=== PATIENT | female | born 1970 | race Caucasian/White ===

== ENCOUNTER → 2018-01-16 | Outpatient (CLI) | payer MEDICARE, OTHER ==
--- NOTE | 2018-01-17 09:31 | MM ---
Reason for exam: screening (asymptomatic). Last mammogram was performed 8 years and 7 months ago. Physical Findings: A clinical breast exam by your physician is recommended on an annual basis and results should be correlated with mammographic findings. MG 3D Screening Mammo W/Cad Bilateral CC and MLO view(s) were taken. Prior study comparison: June 21, 2009, mammogram, performed at [facility]. There are scattered fibroglandular densities. No significant changes when compared with prior studies. ASSESSMENT: Benign, BI-RAD 2 RECOMMENDATION: Routine screening mammogram of both breasts in 1 year.
== END | disposition home or self-care (01) ==
LOC: RADMAMWWP 11:22
PROVIDERS: ATTEND Family Medicine
DX: Z12.31 Encounter for screening mammogram for malignant neoplasm of breast (principal)
CPT/HCPCS: 77063; 77067

== ENCOUNTER → 2020-03-14 | Outpatient (CLI) | payer MEDICARE, OTHER ==
--- NOTE | 2020-03-14 18:34 | BD ---
EXAMINATION TYPE: Axial Bone Density DATE OF EXAM: 03/14/2020 COMPARISON: NONE CLINICAL HISTORY: 49 YR OLD FEMALE.....ICD-10 CODE: Z78.0 ASYMPTOMATIC MENOPAUSAL STATE Height: 64 Weight: 195 FRAX RISK QUESTIONS: Glucocorticoids (More than 3mos): YES (Ex: prednisone, prednisolone, methylprednisolone, dexamethasone, and hydrocortisone). Secondary Osteoporosis: YES 1. Type 1 Diabetes: YES 3. 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 Bone mineral density as measured about the Lumbar spine is: ----- L1-L4(G/cm2): 1.527 T Score Values are as follows: ----- L1: 1.9 ----- L2: 2.8 ----- L3: 2.4 ----- L4: 4.3 ----- L1-L4: 2.9 Bone mineral density BASELINE STUDY Bone mineral density about the R hip (g/cm2): 1.058 Bone mineral density about the L hip (g/cm2): 1.095 T Score values are as follows: -----R Neck: -0.5 -----L Neck: 0.2 -----R Total: 0.4 -----L Total: 0.7 Bone mineral density FIRST BONE DENSITY......BASELINE STUDY FRAX%s: THERE IS A 6.8% CHANCE FOR A MAJOR OSTEOPOROTIC FX AND A 0.4% FOR HIP.....PROBABILITY FOR F X IN 10 YRS TIME IMPRESSION: Normal (Values between +1 and -1 indicate normal bone mass). Consider repeating this study in 5 year s or sooner if there is some new clinical indication. NOTE: T-SCORE=SD OF THE YOUNG ADULT MEAN.
== END | disposition home or self-care (01) ==
LOC: RADBDWWP 10:29
PROVIDERS: ATTEND Family Medicine
DX: Z78.0 Asymptomatic menopausal state (principal)
CPT/HCPCS: 77080

== ENCOUNTER → 2020-05-16 | Outpatient (CLI) | payer MEDICARE, OTHER ==
--- NOTE | 2020-05-19 08:34 | MM ---
Reason for exam: screening (asymptomatic). Last mammogram was performed 2 years and 4 months ago. History: Patient is postmenopausal. Took hormonal contraceptives for 2 years. Physical Findings: A clinical breast exam by your physician is recommended on an annual basis and results should be correlated with mammographic findings. MG Screening Mammo w CAD Bilateral CC and MLO view(s) were taken. Prior study comparison: January 16, 2018, bilateral MG 3d screening mammo w/cad. June 21, 2009, mammogram, performed at [facility]. There are scattered fibroglandular densities. No significant changes when compared with prior studies. ASSESSMENT: Negative, BI-RAD 1 RECOMMENDATION: Routine screening mammogram of both breasts in 1 year.
== END | disposition home or self-care (01) ==
LOC: RADMAMWWP 08:31
PROVIDERS: ATTEND Family Medicine
DX: Z12.31 Encounter for screening mammogram for malignant neoplasm of breast (principal)
CPT/HCPCS: 77067

== ENCOUNTER → 2020-07-28 | Outpatient (CLI) | payer MEDICARE ==
--- NOTE | 2020-07-28 11:51 | XR ---
Left foot HISTORY: Trauma and pain for 3 weeks 3 views the left foot There is a proximal diaphyseal left fifth metatarsal fracture with minimal displacement. No evident c allus formation to suggest fracture healing. No evident dislocation. There is a small plantar calcane al spur. Mild spurring present at the intertarsal joints. IMPRESSION: Proximal fifth metatarsal fracture
== END | disposition home or self-care (01) ==
LOC: RADXRMAIN 09:24
PROVIDERS: ATTEND Family Medicine
DX: S92.352A Displaced fracture of fifth metatarsal bone, left foot, initial encounter for closed fracture (principal)

== ENCOUNTER 2020-09-29 11:44 | Observation (INO) | payer MEDICARE ==
[2020-09-29 13:52] LABS: Appearance,Urine Clear (Clear); Bacteria,Urine Occasional /hpf; Bilirubin,Urine Negative (Negative); Blood,Urine Negative (Negative); Color,Urine Yellow; Glucose,Urine (UA) 4+ (Negative); Leukocyte Esterase,Urine Trace (Negative); Mucus,Urine Rare /hpf; Nitrite,Urine Negative (Negative); Protein,Urine Negative (Negative); RBC,Urine 1 /hpf (0-5); Specific Gravity,Urine 1.028 (1.001-1.035); Squamous Epithelial Cell,Urine 4 /hpf (0-4); Urobilinogen,Urine <2.0 mg/dL (<2.0); WBC,Urine 9 /hpf (0-5)
[2020-09-29 13:55] LABS: Ketones,Urine 2+ (Negative)
[2020-09-29] MEDS ORDERED: ONDANSETRON 4 MG/2 ML VIAL IVP STA (14:19)
[2020-09-29] MEDS ORDERED: SODIUM CHLORIDE 0.9% 1,000 ML IV STA (14:19)
[2020-09-29] MEDS ORDERED: FAMOTIDINE 20 MG/2 ML VIAL IV STA (14:24)
--- NOTE | 2020-09-29 14:28 | ED ---
Abdominal Pain HPI - General Chief Complaint: Abdominal Pain Stated Complaint: Abd Pain x 1 week Time Seen by Provider: 09/29/20 13:55 Source: patient, RN notes reviewed Mode of arrival: ambulatory Limitations: no limitations - History of Present Illness Initial Comments: 50-year-old white female, alert and oriented 4, presents to the emergency room with complaints of epigastric and right upper quadrant pain for the past week. Patient states that she noticed that the pain is worse immediately after she eats. Patient denies any vomiting OR He describes the pain as crampy and sharp after eating. Patient denies any fevers, vomiting, or diarrhea. Patient has history of insulin-dependent diabetes, hypertension. -: week(s) (1) Location: RUQ, epigastric Migration to: no migration Severity: moderate Severity scale (1-10): 4 Quality: cramping, sharp Consistency: intermittent Improves With: other (Not eating) Worsens With: eating Associated Symptoms: denies other symptoms - Related Data Allergies Allergy/AdvReac Type Severity Reaction Status Date / Time Penicillins Allergy Nausea & Verified 09/29/20 12:57 Vomiting Review of Systems ROS Statement: Those systems with pertinent positive or pertinent negative responses have been documented in the HPI. ROS Other: All systems not noted in ROS Statement are negative. Past Medical History Past Medical History: Diabetes Mellitus, Hypertension Additional Past Surgical History / Comment(s): orthopedic Past Psychological History: No Psychological Hx Reported Smoking Status: Former smoker Past Alcohol Use History: None Reported Past Drug Use History: None Reported General Exam Limitations: no limitations Course Vital Signs 09/29/20 09/29/20 09/29/20 12:53 14:54 17:00 Temperature 97.9 F Pulse Rate 93 78 88 Respiratory 20 18 18 Rate Blood Pressure 102/70 109/74 106/80 O2 Sat by Pulse 100 100 100 Oximetry 09/29/20 18:00 Temperature 98.4 F Pulse Rate 80 Respiratory 18 Rate Blood Pressure 110/78 O2 Sat by Pulse 98 Oximetry Medical Decision Making - Medical Decision Making White blood cell count 17.2, neutrophils 10.2, lymphocytes 5.6, BUN 25 creatinine 1.08 is elevated from 0.72 in 2016, possibly [place]. Lactic acid is negative at 1.9. Urine shows 9 WBCs with positive leukocytes. Dr. borrero has seen patient in the ER. , KUB xray shows no abnormal calcifications no obstruction or pneumoperitoneum. Abdominal ultrasound shows no gallstones, fatty liver is noted. - Lab Data Result diagrams: 09/29/20 14:23 09/29/20 14:23 Lab Results 09/29/20 09/29/20 09/29/20 Range/Units 13:41 14:23 14:23 WBC 17.2 H (3.8-10.6) k/uL RBC 5.25 (3.80-5.40) m/uL Hgb 15.5 (11.4-16.0) gm/dL Hct 46.2 H (34.0-46.0) % MCV 87.9 (80.0-100.0) fL MCH 29.5 (25.0-35.0) pg MCHC 33.5 (31.0-37.0) g/dL RDW 12.5 (11.5-15.5) % Plt Count 363 (150-450) k/uL MPV 9.7 Neutrophils % 59 % Lymphocytes % 34 % Monocytes % 4 % Eosinophils % 0 % Basophils % 1 % Neutrophils # 10.2 H (1.3-7.7) k/uL Lymphocytes # 5.8 H (1.0-4.8) k/uL Monocytes # 0.7 (0-1.0) k/uL Eosinophils # 0.1 (0-0.7) k/uL Basophils # 0.1 (0-0.2) k/uL PT 10.1 (9.0-12.0) sec INR 0.9 (<1.2) APTT 22.0 (22.0-30.0) sec Sodium (137-145) mmol/L Potassium (3.5-5.1) mmol/L Chloride (98-107) mmol/L Carbon Dioxide (22-30) mmol/L Anion Gap mmol/L BUN (7-17) mg/dL Creatinine (0.52-1.04) mg/dL Est GFR (CKD-EPI)AfAm (>60 ml/min/1.73 sqM) Est GFR (CKD-EPI)NonAf (>60 ml/min/1.73 sqM) Glucose (74-99) mg/dL Plasma Lactic Acid Vinnie (0.7-2.0) mmol/L Calcium (8.4-10.2) mg/dL Total Bilirubin (0.2-1.3) mg/dL AST (14-36) U/L ALT (4-34) U/L Alkaline Phosphatase (38-126) U/L Total Protein (6.3-8.2) g/dL Albumin (3.5-5.0) g/dL Amylase (30-110) U/L Lipase (23-300) U/L Urine Color Yellow Urine Appearance Clear (Clear) Urine pH 5.0 (5.0-8.0) Ur Specific [place] 1.028 (1.001-1.035) Urine Protein Negative (Negative) Urine Glucose (UA) 4+ H (Negative) Urine Ketones 2+ H (Negative) Urine Blood Negative (Negative) Urine Nitrite Negative (Negative) Urine Bilirubin Negative (Negative) Urine Urobilinogen <2.0 (<2.0) mg/dL Ur Leukocyte Esterase Trace H (Negative) Urine RBC 1 (0-5) /hpf Urine WBC 9 H (0-5) /hpf Ur Squamous Epith Cells 4 (0-4) /hpf Urine Bacteria Occasional H (None) /hpf Urine Mucus Rare H (None) /hpf 09/29/20 09/29/20 Range/Units 14:23 14:23 WBC (3.8-10.6) k/uL RBC (3.80-5.40) m/uL Hgb (11.4-16.0) gm/dL Hct (34.0-46.0) % MCV (80.0-100.0) fL MCH (25.0-35.0) pg MCHC (31.0-37.0) g/dL RDW (11.5-15.5) % Plt Count (150-450) k/uL MPV Neutrophils % % Lymphocytes % % Monocytes % % Eosinophils % % Basophils % % Neutrophils # (1.3-7.7) k/uL Lymphocytes # (1.0-4.8) k/uL Monocytes # (0-1.0) k/uL Eosinophils # (0-0.7) k/uL Basophils # (0-0.2) k/uL PT (9.0-12.0) sec INR (<1.2) APTT (22.0-30.0) sec Sodium 131 L (137-145) mmol/L Potassium 4.4 (3.5-5.1) mmol/L Chloride 89 L (98-107) mmol/L Carbon Dioxide 25 (22-30) mmol/L Anion Gap 17 mmol/L BUN 25 H (7-17) mg/dL Creatinine 1.08 H (0.52-1.04) mg/dL Est GFR (CKD-EPI)AfAm 69 (>60 ml/min/1.73 sqM) Est GFR (CKD-EPI)NonAf 60 (>60 ml/min/1.73 sqM) Glucose 127 H (74-99) mg/dL Plasma Lactic Acid Vinnie 1.9 (0.7-2.0) mmol/L Calcium 9.7 (8.4-10.2) mg/dL Total Bilirubin 0.7 (0.2-1.3) mg/dL AST 31 (14-36) U/L ALT 57 H (4-34) U/L Alkaline Phosphatase 96 (38-126) U/L Total Protein 7.1 (6.3-8.2) g/dL Albumin 4.4 (3.5-5.0) g/dL Amylase 50 (30-110) U/L Lipase 157 (23-300) U/L Urine Color Urine Appearance (Clear) Urine pH (5.0-8.0) Ur Specific [place] (1.001-1.035) Urine Protein (Negative) Urine Glucose (UA) (Negative) Urine Ketones (Negative) Urine Blood (Negative) Urine Nitrite (Negative) Urine Bilirubin (Negative) Urine Urobilinogen (<2.0) mg/dL Ur Leukocyte Esterase (Negative) Urine RBC (0-5) /hpf Urine WBC (0-5) /hpf Ur Squamous Epith Cells (0-4) /hpf Urine Bacteria (None) /hpf Urine Mucus (None) /hpf Disposition Clinical Impression: Abdominal pain Disposition: ADMITTED IP TO THIS HOSP Condition: Fair Instructions (If sedation given, give patient instructions): Abdominal Pain (ED) Is patient prescribed a controlled substance at d/c from ED?: No Referrals: Harpal Queen DO [Primary Care Provider] - 1-2 days Decision Date: 09/29/20 Decision Time: 18:47
[2020-09-29 14:41] LABS: Basophils # (A) 0.1 k/uL (0-0.2); Basophils % (A) 1 %; Eosinophils # (A) 0.1 k/uL (0-0.7); Eosinophils % (A) 0 %; HCT 46.2 % (34.0-46.0); HGB 15.5 gm/dL (11.4-16.0); Lymphocytes # (A) 5.8 k/uL (1.0-4.8); Lymphocytes % (A) 34 %; MCH 29.5 pg (25.0-35.0); MCHC 33.5 g/dL (31.0-37.0); MCV 87.9 fL (80.0-100.0); Mean Platelet Volume 9.7; Monocytes # (A) 0.7 k/uL (0-1.0); Monocytes % (A) 4 %; Neutrophils # (A) 10.2 k/uL (1.3-7.7); Neutrophils % (A) 59 %; Platelet Count 363 k/uL (150-450); RBC 5.25 m/uL (3.80-5.40); RDW 12.5 % (11.5-15.5); WBC 17.2 k/uL (3.8-10.6)
[2020-09-29 14:54] LABS: Albumin 4.4 g/dL (3.5-5.0); Calcium 9.7 mg/dL (8.4-10.2); Potassium 4.4 mmol/L (3.5-5.1); Total Bilirubin 0.7 mg/dL (0.2-1.3); Total Protein 7.1 g/dL (6.3-8.2)
[2020-09-29 14:58] LABS: INR 0.9 (<1.2); Prothrombin Time 10.1 sec (9.0-12.0)
--- NOTE | 2020-09-29 16:36 | XR ---
EXAMINATION TYPE: XR KUB DATE OF EXAM: 09/29/2020 2:30 PM CLINICAL HISTORY: Abdominal pain. TECHNIQUE: Upright images of the abdomen and pelvis were obtained COMPARISON: None. FINDINGS: Left-sided nipple piercing. Nonspecific bowel gas pattern. There is no visceromegaly, pneum operitoneum, or abnormal calcification appreciated. The lung bases are clear. The osseous structures are intact. IMPRESSION: Nonspecific bowel gas pattern.
--- NOTE | 2020-09-29 17:19 | US ---
EXAMINATION TYPE: US abdomen complete DATE OF EXAM: 09/29/2020 COMPARISON: NONE CLINICAL HISTORY: abdominal pain. Epigastric pain, nausea/vomiting EXAM MEASUREMENTS: Liver Length: 17.8 cm Gallbladder Wall: 0.3 cm CBD: 0.4 cm Spleen: 11.7 cm Right Kidney: 10.8 x 4.3 x 4.0 cm Left Kidney: 10.7 x 5.7 x 5.3 cm technical limitations due to overlying bowel content Pancreas: Obscured by bowel gas. Liver: Coarsened echotexture and increased echogenicity. Poor posterior beam penetration due to pres umed fatty liver limits evaluation of the posterior liver. Gallbladder: Normal. No cholelithiasis. Candle Wrapping Machine Operator reports negative sonographic [place] sign. CBD: Normal. Spleen: Normal. Right Kidney: No hydronephrosis. Left Kidney: No hydronephrosis. Upper IVC: Normal. Abd Aorta: Midportion obscured by overlying bowel gas. Proximal and distal portions normal in calibe r. IMPRESSION: 1. Fatty liver. 2. Otherwise no acute visualized process of the abdomen.
--- NOTE | 2020-09-29 18:23 | CT ---
EXAMINATION TYPE: CT abdomen pelvis wo con DATE OF EXAM: 09/29/2020 COMPARISON: Same day abdominal ultrasound HISTORY: abdominal pain CT DLP: 645.4 mGycm Automated exposure control for dose reduction was used. TECHNIQUE: Helical acquisition of images was performed from the lung bases through the pelvis. CONTRAST: Performed without Oral Contrast and without intravenous contrast. Lack of contrast limits evaluation of the dominant pelvic viscera and vasculature. FINDINGS: LUNG BASES: Normal. LIVER: Fatty liver. BILIARY SYSTEM: No intrahepatic or extrahepatic biliary ductal dilatation. PANCREAS: No peripancreatic stranding or fluid collection. SPLEEN: Not enlarged. ADRENALS: There is nodular thickening of the left adrenal gland which is indeterminate. Right adrenal gland normal. KIDNEYS: No hydronephrosis or nephrolithiasis . BOWEL: No evidence of bowel obstruction. There is perigastric inflammatory stranding about the dista l antrum and pyloric region. The stomach is not well-distended, and limited in evaluation with lack o f contrast. No evidence of gastric perforation. PERITONEUM: No pneumoperitoneum. No free fluid. LYMPH NODES: Prominent perigastric mesenteric lymph nodes in the region of the pylorus, largest trina uring up to 7 mm. PELVIS: Normal uterus and adnexa. Urinary bladder nondistended. VASCULATURE: No abdominal aortic aneurysm. MUSCULOSKELETAL: Degenerative changes of the spine. IMPRESSION: 1. There is perigastric inflammatory stranding and reactive lymphadenopathy about the distal antrum a nd pyloric region. The stomach is limited in evaluation due to lack of intravenous or oral contrast a nd nondistention. There is no gastric perforation. Differential includes gastritis, ulcerative diseas e, and neoplasm. Recommend correlation with EGD. 2. Non determinate nodular thickening of the left adrenal gland. CT abdomen or MRI abdomen with adren al mass protocol is recommended for further characterization. 3. Fatty liver.
[2020-09-29] MEDS ORDERED: ACETAMINOPHEN TAB 325 MG TAB PO PRN (18:42)
[2020-09-29] MEDS ORDERED: NALOXONE 0.4 MG/ML 1 ML VIAL IV PRN (18:42)
[2020-09-29] MEDS ORDERED: SODIUM CHLORIDE 0.9% 1,000 ML IV SCH (18:45)
[2020-09-29] MEDS ORDERED: hydrALAZINE HCL 20 MG/ML 1 ML VIAL IVP PRN (21:38)
[2020-09-29] MEDS ORDERED: MORPHINE SULFATE 4 MG/ML SYRINGE IVP PRN (21:38)
[2020-09-29 22:31] LABS: Glucose,Whole Blood 61 mg/dL (75-99)
[2020-09-29] MEDS ORDERED: DEXTROSE 50% SYRINGE 50 ML IVP STA (22:39)
[2020-09-29] MEDS ORDERED: DEXTROSE 50% SYRINGE 50 ML IVP ONE (22:44)
--- NOTE | 2020-09-29 23:15 | P.HPIM ---
History of Present Illness This is a pleasant 50 years old female with past medical history of hypertension, diabetes mellitus. She is a patient of Dr. Queen she also follow-up with Dr. Miller for pain management and Dr. Harrell for rheumatoid arthritis She presents because of upper abdominal pain and tenderness of one week ago associated with recurrent vomiting which is stopped now. She has normal bowel movement. Her abdominal pain is rated about 3-4/10 in severity, felt like stabbing increased with food but unrelated to drinks. She denies smoking, alcohol or illicit drugs She denies chest pain or dyspnea. No headache or weakness or numbness. Patient is hemodynamically stable and afebrile. Left showing leukocytosis of 17.2 K, rest of CBC, BMP is unremarkable Slightly low at 131, creatinine is slightly up at 1.08. Liver enzymes not elevated. Glucose 61 and patient was placed on D5 normal saline. Urine analysis showing Samper with no evidence of infection. Patient has glucosuria Coronavirus not detected CT of the abdomen and pelvis showing left adrenal nodular thickening and fat stranding around the pylorus and antrum of the stomach, rule out ulcer, neoplasm or gastritis per radiologist Review of Systems CONSTITUTIONAL: No fever, no malaise, no fatigue. HEENT: No recent visual problems or hearing problems. Denied any sore throat. CARDIOVASCULAR: No orthopnea, PND, no palpitations, no syncope. PULMONARY: No shortness of breath, no cough, no hemoptysis. GASTROINTESTINAL: No diarrhea, no nausea,. Normoactive bowel sounds. NEUROLOGICAL: No headaches, no weakness, no numbness. HEMATOLOGICAL: Denies any bleeding or petechiae. GENITOURINARY: Denies any burning micturition, frequency, or urgency. MUSCULOSKELETAL/RHEUMATOLOGICAL: Denies any joint pain, swelling, or any muscle pain. ENDOCRINE: Denies any polyuria or polydipsia. Past Medical History Past Medical History: Diabetes Mellitus, Hypertension Additional Past Surgical History / Comment(s): orthopedic Past Psychological History: No Psychological Hx Reported Smoking Status: Former smoker Past Alcohol Use History: None Reported Past Drug Use History: None Reported Medications and Allergies Home Medications Medication Instructions Recorded Confirmed Type ARIPiprazole [Abilify] 20 mg PO DAILY 09/29/20 09/29/20 History Budesonide/Formoterol Fumarate 2 puff INHALATION RT-BID PRN 09/29/20 09/29/20 History [Symbicort 160-4.5 Mcg Inhaler] Bydureon Bcise 2mg Autoinject 2 mg INJ MAX 09/29/20 09/29/20 History DULoxetine HCL [Cymbalta] 120 mg PO HS 09/29/20 09/29/20 History Dapagliflozin Propanediol [Farxiga] 10 mg PO DAILY 09/29/20 09/29/20 History Etanercept [Enbrel Sureclick] 5 mg INJ MAX 09/29/20 09/29/20 History Fluticasone Nasal [place] [Flonase 1 spray EA NOSTRIL DAILY PRN 09/29/20 09/29/20 History Nasal [place]] HYDROcodone/APAP 10-325MG [[place] 1 tab PO DAILY 09/29/20 09/29/20 History 10-325] Hydroxychloroquine Sulfate 200 mg PO BID 09/29/20 09/29/20 History [Plaquenil] Insulin Detemir [Levemir Flextouch] 50 unit SQ HS 09/29/20 09/29/20 History Meloxicam [Mobic] 15 mg PO DAILY PRN 09/29/20 09/29/20 History Metoprolol Succinate [Toprol XL] 100 mg PO DAILY 09/29/20 09/29/20 History Morphine Sulfate ER [Ms Contin] 15 mg PO BID 09/29/20 09/29/20 History Simvastatin [Zocor] 20 mg PO HS 09/29/20 09/29/20 History metFORMIN HCL [Glucophage] 500 mg PO BID 09/29/20 09/29/20 History Allergies Allergy/AdvReac Type Severity Reaction Status Date / Time Penicillins Allergy Nausea & Verified 09/29/20 20:48 Vomiting Physical Exam Vitals: Vital Signs Temp Pulse Resp BP Pulse Ox 09/29/20 21:00 98.1 F 71 18 102/70 98 09/29/20 19:30 98.1 F 65 18 104/71 97 09/29/20 18:00 98.4 F 80 18 110/78 98 09/29/20 17:00 88 18 106/80 100 09/29/20 14:54 78 18 109/74 100 09/29/20 12:53 97.9 F 93 20 102/70 100 Intake and Output 09/29/20 09/29/20 09/29/20 06:59 14:59 22:59 Other: Weight 88.451 kg GENERAL: The patient is alert and oriented x3, not in any acute distress. Well developed, well nourished. HEENT: Pupils are round and equally reacting to light. EOMI. No scleral icterus. No conjunctival pallor. Normocephalic, atraumatic. No pharyngeal erythema. No thyromegaly. CARDIOVASCULAR: S1 and S2 present. No murmurs, rubs, or gallops. PULMONARY: Chest is clear to auscultation, no wheezing or crackles. -ABDOMEN: Soft, epigastric pain and tenderness, no rebound tenderness, nondist ended, normoactive bowel sounds. No palpable organomegaly. MUSCULOSKELETAL: No joint swelling or deformity. EXTREMITIES: No cyanosis, clubbing, or pedal edema. NEUROLOGICAL: Gross neurological examination did not reveal any focal deficits. SKIN: No rashes. no petechiae. Results CBC & Chem 7: 09/29/20 14:23 09/29/20 14:23 Labs: Abnormal Lab Results - Last 24 Hours (Table) 09/29/20 09/29/20 09/29/20 Range/Units 13:41 14:23 14:23 WBC 17.2 H (3.8-10.6) k/uL Hct 46.2 H (34.0-46.0) % Neutrophils # 10.2 H (1.3-7.7) k/uL Lymphocytes # 5.8 H (1.0-4.8) k/uL Sodium 131 L (137-145) mmol/L Chloride 89 L (98-107) mmol/L BUN 25 H (7-17) mg/dL Creatinine 1.08 H (0.52-1.04) mg/dL Glucose 127 H (74-99) mg/dL ALT 57 H (4-34) U/L Urine Glucose (UA) 4+ H (Negative) Urine Ketones 2+ H (Negative) Ur Leukocyte Esterase Trace H (Negative) Urine WBC 9 H (0-5) /hpf Urine Bacteria Occasional H (None) /hpf Urine Mucus Rare H (None) /hpf Assessment and Plan Assessment: Acute gastritis with epigastric pain and tenderness. Rule out neoplastic process. Left adrenal nodular thickening Dehydration Hypertension 2 diabetes mellitus Chronic pain syndrome and follow-up with Dr. Miller History of rheumatoid arthritis Plan: This is a pleasant 50 years old female who presents with epigastric abdominal pain and tenderness with vomiting. Patient is dehydrated so continue with IV fluids, continue with Protonix. Pain management. Bowel rest. IV fluids. Consult GI team for possible EGD Labs and medication were reviewed.. Continue same treatment. Continue with symptomatic treatment. Resume home medication. Monitor lytes and vitals. DVT and GI prophylaxis. Further recommendationsas per clinical course of the patient DVT prophylaxis: Subcutaneous heparin GI Prophylaxis: Ppi Prognosis is guarded
[2020-09-29 23:22] LABS: Glucose,Whole Blood 122 mg/dL (75-99)
[2020-09-29] MEDS: DEXTROSE 5%-0.9% NACL 1,000 ML IV SCH (23:25)
[2020-09-30 00:21] LABS: Glucose,Whole Blood 107 mg/dL (75-99)
[2020-09-30 03:27] LABS: Glucose,Whole Blood 141 mg/dL (75-99)
[2020-09-30 07:01] LABS: Glucose,Whole Blood 155 mg/dL (75-99)
[2020-09-30] MEDS: INSULIN ASPART (NovoLOG) 100 UNIT/ML VIAL SQ SCH ×4 (08:15→20:59)
[2020-09-30] MEDS: DEXTROSE 5%-0.9% NACL 1,000 ML IV SCH ×2 (09:48→20:59)
[2020-09-30 11:36] LABS: Glucose,Whole Blood 120 mg/dL (75-99)
[2020-09-30 17:42] LABS: Glucose,Whole Blood 185 mg/dL (75-99)
--- NOTE | 2020-09-30 20:14 | P.PN ---
Subjective This is a pleasant 50 years old female with past medical history of hypertension, diabetes mellitus. She is a patient of Dr. Queen she also follo w-up with Dr. Miller for pain management and Dr. Harrell for rheumatoid arthritis She presents because of upper abdominal pain and tenderness of one week ago associated with recurrent vomiting which is stopped now. She has normal bowel movement. Her abdominal pain is rated about 3-4/10 in severity, felt like stabbing increased with food but unrelated to drinks. She denies smoking, alcohol or illicit drugs She denies chest pain or dyspnea. No headache or weakness or numbness. Patient is hemodynamically stable and afebrile. Left showing leukocytosis of 17.2 K, rest of CBC, BMP is unremarkable Slightly low at 131, creatinine is slightly up at 1.08. Liver enzymes not elevated. Glucose 61 and patient was placed on D5 normal saline. Urine analysis showing Samper with no evidence of infection. Patient has glucosuria Coronavirus not detected CT of the abdomen and pelvis showing left adrenal nodular thickening and fat stranding around the pylorus and antrum of the stomach, rule out ulcer, neoplasm or gastritis per radiologist 09/30/2020 Patient epigastric pain and tenderness has improved today, hemodynamically stable Labs are pending still. Glucose is controlled Discussed case with GI team and planning for EGD in the morning. Patient aware of her gastritis and the need to rule out neoplasm Patient remains on D5 normal saline at 100 mL per hour and Protonix IV twice a day Objective - Vital Signs Vital signs: Vital Signs Temp 97.7 F 09/30/20 07:00 Pulse 64 09/30/20 07:59 Resp 14 09/30/20 07:59 BP 98/67 09/30/20 07:00 Pulse Ox 96 09/30/20 07:00 Intake & Output 09/29/20 09/30/20 09/30/20 18:59 06:59 18:59 Weight 88.451 kg 88.451 kg Other: Voiding Method Toilet Toilet # Voids 1 - Exam GENERAL: The patient is alert and oriented x3, not in any acute distress. Well developed, well nourished. HEENT: Pupils are round and equally reacting to light. EOMI. No scleral icterus. No conjunctival pallor. Normocephalic, atraumatic. No pharyngeal erythema. No thyromegaly. CARDIOVASCULAR: S1 and S2 present. No murmurs, rubs, or gallops. PULMONARY: Chest is clear to auscultation, no wheezing or crackles. ABDOMEN: Soft, nontender, nondistended, normoactive bowel sounds. No palpable organomegaly. MUSCULOSKELETAL: No joint swelling or deformity. EXTREMITIES: No cyanosis, clubbing, or pedal edema. NEUROLOGICAL: Gross neurological examination did not reveal any focal deficits. SKIN: No rashes. no petechiae. - Labs CBC & Chem 7: 09/29/20 14:23 09/29/20 14:23 Labs: Abnormal Lab Results - Last 24 Hours (Table) 09/29/20 09/29/20 09/29/20 Range/Units 13:41 14:23 14:23 WBC 17.2 H (3.8-10.6) k/uL Hct 46.2 H (34.0-46.0) % Neutrophils # 10.2 H (1.3-7.7) k/uL Lymphocytes # 5.8 H (1.0-4.8) k/uL Sodium 131 L (137-145) mmol/L Chloride 89 L (98-107) mmol/L BUN 25 H (7-17) mg/dL Creatinine 1.08 H (0.52-1.04) mg/dL Glucose 127 H (74-99) mg/dL POC Glucose (mg/dL) (75-99) mg/dL ALT 57 H (4-34) U/L Urine Glucose (UA) 4+ H (Negative) Urine Ketones 2+ H (Negative) Ur Leukocyte Esterase Trace H (Negative) Urine WBC 9 H (0-5) /hpf Urine Bacteria Occasional H (None) /hpf Urine Mucus Rare H (None) /hpf 09/29/20 09/29/20 09/30/20 Range/Units 22:30 23:20 00:20 WBC (3.8-10.6) k/uL Hct (34.0-46.0) % Neutrophils # (1.3-7.7) k/uL Lymphocytes # (1.0-4.8) k/uL Sodium (137-145) mmol/L Chloride (98-107) mmol/L BUN (7-17) mg/dL Creatinine (0.52-1.04) mg/dL Glucose (74-99) mg/dL POC Glucose (mg/dL) 61 L 122 H 107 H (75-99) mg/dL ALT (4-34) U/L Urine Glucose (UA) (Negative) Urine Ketones (Negative) Ur Leukocyte Esterase (Negative) Urine WBC (0-5) /hpf Urine Bacteria (None) /hpf Urine Mucus (None) /hpf 09/30/20 09/30/20 09/30/20 Range/Units 03:25 07:00 11:34 WBC (3.8-10.6) k/uL Hct (34.0-46.0) % Neutrophils # (1.3-7.7) k/uL Lymphocytes # (1.0-4.8) k/uL Sodium (137-145) mmol/L Chloride (98-107) mmol/L BUN (7-17) mg/dL Creatinine (0.52-1.04) mg/dL Glucose (74-99) mg/dL POC Glucose (mg/dL) 141 H 155 H 120 H (75-99) mg/dL ALT (4-34) U/L Urine Glucose (UA) (Negative) Urine Ketones (Negative) Ur Leukocyte Esterase (Negative) Urine WBC (0-5) /hpf Urine Bacteria (None) /hpf Urine Mucus (None) /hpf Assessment and Plan Assessment: Acute gastritis with epigastric pain and tenderness. Rule out neoplastic process. Left adrenal nodular thickening Dehydration Hypertension 2 diabetes mellitus Chronic pain syndrome and follow-up with Dr. Miller History of rheumatoid arthritis Plan: This is a pleasant 50 years old female who presents with epigastric abdominal pain and tenderness with vomiting. Patient is dehydrated so continue with IV fluids, continue with Protonix. Pain management. Bowel rest. IV fluids. Continue with GI team recommendation for EGD in the morning Labs and medication were reviewed.. Continue same treatment. Continue with symptomatic treatment. Resume home medication. Monitor lytes and vitals. DVT and GI prophylaxis. Further recommendations as per clinical course of the patient DVT prophylaxis: Subcutaneous heparin GI Prophylaxis: Ppi Prognosis is guarded
[2020-09-30 20:44] LABS: Glucose,Whole Blood 209 mg/dL (75-99)
[2020-09-30] MEDS: PANTOPRAZOLE 40 MG/10 ML VIAL IVP SCH (20:59)
[2020-09-30 21:38] LABS: Basophils % (A) 0.9 %; Eosinophils # (A) 0.09 X 10*3/uL (0.04-0.35); Eosinophils % (A) 0.8 %; HCT 48.9 % (37.2-46.3); HGB 16.5 g/dL (12.0-15.0); Lymphocytes # (A) 3.54 X 10*3/uL (0.90-5.00); Lymphocytes % (A) 32.8 %; MCH 30.4 pg (27.0-32.0); MCHC 33.7 g/dL (32.0-37.0); MCV 90.1 fL (80.0-97.0); Mean Platelet Volume 12.1 fL (9.5-12.2); Monocytes # (A) 0.74 X 10*3/uL (0.20-1.00); Monocytes % (A) 6.9 %; Neutrophils # (A) 6.27 X 10*3/uL (1.80-7.70); Neutrophils % (A) 58.1 %; Platelet Count 259 X 10*3/uL (140-440); RBC 5.43 X 10*6/uL (4.10-5.20); WBC 10.79 X 10*3/uL (4.50-10.00)
[2020-09-30 22:20] LABS: African American GFR (CKD) 86.4 (60.0-200.0); BUN/Creat Ratio 18.89 Ratio (12.00-20.00); Calcium 9.5 mg/dL (8.7-10.3); Non-African American GFR(CKD) 74.6 (60.0-200.0); Potassium 4.4 mmol/L (3.5-5.5)
--- NOTE | 2020-10-01 01:59 | CONS ---
CONSULTATION DATE OF SERVICE: 09/30/2020 REASON FOR CONSULTATION: Epigastric pain, nausea, vomiting. HISTORY OF PRESENT ILLNESS: The patient is a 50-year-old pleasant white female admitted to the hospital with epigastric pain associated with nausea and vomiting for the last one week duration. The pain mostly in the epigastric area and had a couple of episodes of emesis, but no coffee-grounds emesis. Denies any rectal bleeding or melena. She never had these symptoms in the past. She does have history of degenerative joint disease and takes Mobic on a daily basis. No prior history of peptic ulcer disease. PAST MEDICAL HISTORY: Significant for diabetes mellitus, hypertension, hyperlipidemia, anxiety, depression, irritable bowel syndrome, degenerative joint disease PAST SURGICAL HISTORY: None. ALLERGIES: PENICILLIN AND CODEINE. MEDICATIONS AT HOME: Include Glucophage, Zocor, MS Contin, Toprol, Mobic, Levemir, Plaquenil, Fountain, ( ), Symbicort, Cymbalta, Flonase, Abilify, Enbrel and ( ). SOCIAL HISTORY: No smoking, no alcohol use. FAMILY HISTORY: Unremarkable. REVIEW OF SYSTEMS: CARDIOPULMONARY: She denies any chest pain or shortness of breath. GENITOURINARY: No dysuria or hematuria. GI: As mentioned above. HEMATOLOGY: Unremarkable. PSYCHIATRIC: Unremarkable. ENT/VISION: Unremarkable. CONSTITUTIONAL: No recent weight loss. No fever, chills, night sweats. ENDOCRINE: History of diabetes mellitus. PHYSICAL EXAMINATION: Blood pressure 108/72, pulse 89, temperature 98.2. HEENT examination unremarkable. Conjunctivae pink, sclerae anicteric. Oral cavity no lesions. NECK: No JVD or lymph node enlargement. CHEST was clear to auscultation. HEART: Regular rate and rhythm. ABDOMEN: Soft. There was mild tenderness in the epigastric area. Bowel sounds are positive. No organomegaly. EXTREMITIES: No pedal edema. SKIN: No rashes. NEURO: She is alert and oriented x3. No focal deficits. LABS: WBC 17.2, hemoglobin 15.5, platelets normal. Basic metabolic panel is within normal limits. BUN is 25, creatinine 1.08. AST was 131, ALT was 57. T bilirubin and alkaline phosphatase are within normal limits. Coronavirus PCR is negative. She did have a CT of the abdomen and pelvis done in the emergency room that showed perigastric inflammation and reactive lymphadenopathy in the distal antrum and pyloric area. Possibility of peptic ulcer disease versus gastritis were suggested by the radiologist. Also, there was evidence of fatty infiltration of the liver. IMPRESSION: 1. Acute onset of severe epigastric pain for the last one week duration associated with nausea vomiting and CT scan showing perigastric inflammation involving the antrum and pylorus. Rule out peptic ulcer disease. The patient has been taking Mobic for several years for degenerative joint disease. 2. History of diabetes mellitus. 3. History of anxiety and depression. 4. History of irritable bowel syndrome. RECOMMENDATION: 1. Continue with Protonix 40 mg twice daily. 2. Clear liquid diet. 3. We will proceed with an upper endoscopy tomorrow. Discussed with the patient risks, benefits and complications and she is agreeable to it. Thank you for this consultation. LEOLA / NATALYA: [id number] /
[2020-10-01] MEDS: DEXTROSE 5%-0.9% NACL 1,000 ML IV SCH ×2 (05:35→14:54)
[2020-10-01 07:02] LABS: Glucose,Whole Blood 154 mg/dL (75-99)
[2020-10-01] MEDS: INSULIN ASPART (NovoLOG) 100 UNIT/ML VIAL SQ SCH ×4 (08:57→21:24)
[2020-10-01] MEDS: PANTOPRAZOLE 40 MG/10 ML VIAL IVP SCH ×2 (10:21→21:24)
[2020-10-01 11:47] LABS: Glucose,Whole Blood 132 mg/dL (75-99)
--- NOTE | 2020-10-01 13:43 | P.PN ---
Subjective This is a pleasant 50 years old female with past medical history of hypertension, diabetes mellitus. She is a patient of Dr. Queen she also follo w-up with Dr. Miller for pain management and Dr. Harrell for rheumatoid arthritis She presents because of upper abdominal pain and tenderness of one week ago associated with recurrent vomiting which is stopped now. She has normal bowel movement. Her abdominal pain is rated about 3-4/10 in severity, felt like stabbing increased with food but unrelated to drinks. She denies smoking, alcohol or illicit drugs She denies chest pain or dyspnea. No headache or weakness or numbness. Patient is hemodynamically stable and afebrile. Left showing leukocytosis of 17.2 K, rest of CBC, BMP is unremarkable Slightly low at 131, creatinine is slightly up at 1.08. Liver enzymes not elevated. Glucose 61 and patient was placed on D5 normal saline. Urine analysis showing Samper with no evidence of infection. Patient has glucosuria Coronavirus not detected CT of the abdomen and pelvis showing left adrenal nodular thickening and fat stranding around the pylorus and antrum of the stomach, rule out ulcer, neoplasm or gastritis per radiologist 09/30/2020 Patient epigastric pain and tenderness has improved today, hemodynamically stable Labs are pending still. Glucose is controlled Discussed case with GI team and planning for EGD in the morning. Patient aware of her gastritis and the need to rule out neoplasm Patient remains on D5 normal saline at 100 mL per hour and Protonix IV twice a day 10/01/2020 Patient clinically improving, she still pending EGD to be done today. She is nothing by mouth and on IV fluids normal saline at 100 mL per hour, lower to 75 mL/h. No abdominal pain and tenderness WBC came down to 10 K yesterday, creatinine back to normal at 0.9 yesterday. Patient is informed and aware about her left adrenal thickening, risk of cancer explained to her and she verbalized understanding. She was informed she will need CAT scan/MRI at certain point and she agrees Objective - Vital Signs Vital signs: Vital Signs Temp 98.1 F 10/01/20 07:00 Pulse 94 10/01/20 07:00 Resp 18 10/01/20 07:00 BP 126/83 10/01/20 07:00 Pulse Ox 98 10/01/20 07:00 Intake & Output 0610/01/20 10/01/20 18:59 06:59 18:59 Intake Total 800 Balance 800 Intake: IV 800 Dextrose 5%-0.9% NaCl 1, 800 000 ml @ 100 mls/hr IV . Q10H [facility] Rx#:[id number] Other: Voiding Method Toilet Toilet Toilet # Voids 3 1 - Exam GENERAL: The patient is alert and oriented x3, not in any acute distress. Well developed, well nourished. HEENT: Pupils are round and equally reacting to light. EOMI. No scleral icterus. No conjunctival pallor. Normocephalic, atraumatic. No pharyngeal erythema. No thyromegaly. CARDIOVASCULAR: S1 and S2 present. No murmurs, rubs, or gallops. PULMONARY: Chest is clear to auscultation, no wheezing or crackles. ABDOMEN: Soft, nontender, nondistended, normoactive bowel sounds. No palpable organomegaly. MUSCULOSKELETAL: No joint swelling or deformity. EXTREMITIES: No cyanosis, clubbing, or pedal edema. NEUROLOGICAL: Gross neurological examination did not reveal any focal deficits. SKIN: No rashes. no petechiae. - Labs CBC & Chem 7: 09/30/20 12:26 09/30/20 12:26 Labs: Abnormal Lab Results - Last 24 Hours (Table) 09/30/20 09/30/20 09/30/20 Range/Units 12:26 12:26 17:41 WBC 10.79 H (4.50-10.00) X 10*3/uL RBC 5.43 H (4.10-5.20) X 10*6/uL Hgb 16.5 H (12.0-15.0) g/dL Hct 48.9 H (37.2-46.3) % Immature Gran # 0.05 H (0.00-0.04) X 10*3/uL Chloride 95 L (96-109) mmol/L Carbon Dioxide 19.0 L (21.6-31.8) mmol/L Anion Gap 21.00 H (4.00-12.00) mmol/L Glucose 169 H (70-110) mg/dL POC Glucose (mg/dL) 185 H (75-99) mg/dL 09/30/20 10/01/20 10/01/20 Range/Units 20:42 07:01 11:46 WBC (4.50-10.00) X 10*3/uL RBC (4.10-5.20) X 10*6/uL Hgb (12.0-15.0) g/dL Hct (37.2-46.3) % Immature Gran # (0.00-0.04) X 10*3/uL Chloride (96-109) mmol/L Carbon Dioxide (21.6-31.8) mmol/L Anion Gap (4.00-12.00) mmol/L Glucose (70-110) mg/dL POC Glucose (mg/dL) 209 H 154 H 132 H (75-99) mg/dL Assessment and Plan Assessment: Acute gastritis with epigastric pain and tenderness. Rule out neoplastic process. Left adrenal nodular thickening Dehydration Hypertension 2 diabetes mellitus Chronic pain syndrome and follow-up with Dr. Miller History of rheumatoid arthritis Plan: This is a pleasant 50 years old female who presents with epigastric abdominal pain and tenderness with vomiting. Patient is dehydrated so continue with IV fluids, continue with Protonix. Pain management. Bowel rest. IV fluids. Continue with GI team recommendation for EGD in the morning Labs and medication were reviewed.. Continue same treatment. Continue with symptomatic treatment. Resume home medication. Monitor lytes and vitals. DVT and GI prophylaxis. Further recommendations as per clinical course of the patient DVT prophylaxis: Subcutaneous heparin GI Prophylaxis: Ppi Prognosis is guarded
[2020-10-01] MEDS ORDERED: PROPOFOL 10 MG/ML 20 ML VIAL IV ONE (13:44)
[2020-10-01] MEDS ORDERED: LIDOCAINE 1% INJ 10MG/ML (20 ML MDV) ONE (13:44)
[2020-10-01] MEDS ORDERED: IV FLUID CONTINUATION 1,000 ML IV ONE ×2 (13:45)
--- NOTE | 2020-10-01 14:04 | P.PCN ---
Date of Procedure: 10/01/20 Description of Procedure: BRIEF HISTORY: 50-year-old female admitted to the hospital with complaints of epigastric abdominal pain with associated nausea and vomiting. Symptoms have been present for at least 1 week. Pain mainly in the epigastric region with associated episodes of emesis the patient denies any coffee-ground emesis. She denies any rectal bleeding or melena. No prior symptoms. She is reporting degenerative joint disease and takes Moby Hermilo daily. No prior history of peptic ulcer disease. PROCEDURE PERFORMED: Esophagogastroduodenoscopy. PREOPERATIVE DIAGNOSIS: Epigastric abdominal pain, nausea vomiting, abnormal computed tomography scan abdomen. ESTIMATED BLOOD LOSS: Minimal. IV sedation per anesthesia. PROCEDURE: After informed consent was obtained, the patient was brought into the endoscopy unit. IV sedation was administered by Anesthesia under continuous monitoring. Initially the Olympus GIF-190 video endoscope was inserted into the mouth. Esophagus intubated without any difficulty. It was gradually advanced into the stomach and duodenum and carefully examined. The bulb and the second part of the duodenum appeared normal, with biopsies taken. The scope at this time was withdrawn to the stomach, adequately insufflated with air, and upon careful examination, mucosa of the antrum, body, cardia and the fundus was significant for 2 large cratered nonbleeding antral ulcers without high-risk stigmata for bleeding measuring approximately 1 cm and 1.5 cm in size with biopsies taken. The scope was then withdrawn into the esophagus. The GE junction was located at 37 cm from the incisors. The esophagus appeared normal. There were no erosions or ulcerations seen and the patient tolerated the procedure well. IMPRESSION: 1. 2 large nonbleeding cratered antral ulcers without high-risk stigmata for bleeding. 2. Biopsies of the duodenum, and antral ulcers. RECOMMENDATIONS: The findings of this examination were discussed with the patient and medical team. Okay for diabetic soft diet. Patient should remain on Protonix 40 mg twice daily after discharge. Continue to monitor hemoglobin and hematocrit and transfuse as needed. Await pathology from biopsies. Patient should have repeat EGD in 8 weeks to check for ulcer healing. Patient should have strict avoidance of Mobic and NSAID medications.
[2020-10-01 15:06] VITALS: RESP 16
[2020-10-01 17:28] LABS: Glucose,Whole Blood 270 mg/dL (75-99)
[2020-10-01 21:08] LABS: Glucose,Whole Blood 187 mg/dL (75-99)
[2020-10-02] MEDS: DEXTROSE 5%-0.9% NACL 1,000 ML IV SCH (05:46)
[2020-10-02 07:21] LABS: Glucose,Whole Blood 180 mg/dL (75-99)
[2020-10-02 07:42] VITALS: BP 134/75; PULSE 72; TEMP 98.3
[2020-10-02] MEDS: INSULIN ASPART (NovoLOG) 100 UNIT/ML VIAL SQ SCH ×2 (08:37→12:40)
[2020-10-02] MEDS: PANTOPRAZOLE 40 MG/10 ML VIAL IVP SCH (08:38)
[2020-10-02 08:40] LABS: Basophils # (A) 0.1 k/uL (0-0.2); Basophils % (A) 1 %; Eosinophils # (A) 0.1 k/uL (0-0.7); Eosinophils % (A) 1 %; HCT 42.7 % (34.0-46.0); HGB 14.7 gm/dL (11.4-16.0); Lymphocytes # (A) 2.1 k/uL (1.0-4.8); Lymphocytes % (A) 25 %; MCH 30.6 pg (25.0-35.0); MCHC 34.4 g/dL (31.0-37.0); MCV 88.9 fL (80.0-100.0); Monocytes # (A) 0.4 k/uL (0-1.0); Monocytes % (A) 5 %; Neutrophils # (A) 5.6 k/uL (1.3-7.7); Neutrophils % (A) 67 %; Platelet Count 246 k/uL (150-450); RDW 12.1 % (11.5-15.5); WBC 8.4 k/uL (3.8-10.6)
[2020-10-02 08:52] LABS: African American GFR (CKD) >90 (>60 ml/min/1.73 sqM); Anion Gap 10 mmol/L; Blood Urea Nitrogen 9 mg/dL (7-17); Calcium 8.6 mg/dL (8.4-10.2); Carbon Dioxide 23 mmol/L (22-30); Chloride 103 mmol/L (98-107); Glucose 202 mg/dL (74-99); Non-African American GFR(CKD) >90 (>60 ml/min/1.73 sqM); Potassium 3.7 mmol/L (3.5-5.1); Sodium 136 mmol/L (137-145)
--- NOTE | 2020-10-02 11:09 | P.PN ---
Subjective Progress Note Date: 10/02/20 Principal diagnosis: Epigastric pain She was seen and examined sitting up at the bedside. She is status post upper endoscopy yesterday which revealed 2 large nonbleeding cratered antral ulcers without high risk stigmata for bleeding. She states she has feeling better today. Denies any abdominal pain, nausea, or vomiting. Denies any signs of GI bleed. Hemoglobin is stable at 14.7. Objective - Vital Signs Vital signs: Vital Signs Temp 98.3 F 10/02/20 07:00 Pulse 72 10/02/20 07:00 Resp 16 10/02/20 07:00 BP 134/75 10/02/20 07:00 Pulse Ox 93 L 10/02/20 07:00 Intake & Output 10/01/20 10/02/20 10/02/20 18:59 06:59 18:59 Intake Total 400 Balance 400 Intake: IV 100 Oral 300 Other: Voiding Method Toilet Toilet Toilet # Voids 2 - Exam General appearance: The patient is alert, oriented, appears in no acute distress. HET: Head is normocephalic and atraumatic. Conjunctiva pink. Sclera anicteric. Neck: Supple without lymphadenopathy. Abdomen: Soft, nontender, nondistended with bowel sounds. No guarding or rigidity. Extremities: Normal skin color and turgor. No pedal edema Skin: No rashes, no jaundice Neurological: No focal deficits. Alert and oriented 3. - Labs CBC & Chem 7: 10/02/20 07:32 10/02/20 07:32 Labs: Abnormal Lab Results - Last 24 Hours (Table) 10/01/20 10/01/20 10/01/20 Range/Units 11:46 17:27 21:07 Sodium (137-145) mmol/L Glucose (74-99) mg/dL POC Glucose (mg/dL) 132 H 270 H 187 H (75-99) mg/dL 10/02/20 10/02/20 Range/Units 07:19 07:32 Sodium 136 L (137-145) mmol/L Glucose 202 H (74-99) mg/dL POC Glucose (mg/dL) 180 H (75-99) mg/dL Assessment and Plan (1) Abdominal pain Narrative/Plan: 50-year-old female with acute onset of epigastric pain for the last 1 week's duration associated with nausea and vomiting. Computed tomography scan showed perigastric inflammation involving the antrum and pylorus. Rule out peptic ulcer disease. She has been taking Moban for several years for degenerative joint disease. She is status post upper endoscopy yesterday which revealed 2 large cratered antral ulcers without high risk stigmata for bleeding. Current Visit: Yes Status: Acute Code(s): R10.9 - UNSPECIFIED ABDOMINAL PAIN SNOMED Code(s): 03719677 (2) Antral ulcer Current Visit: Yes Status: Acute Code(s): K25.9 - GASTRIC ULCER, UNSP ACUTE OR CHRONIC, W/O HEMOR OR PERF SNOMED Code(s): 8481139872125 Plan: 1. Diabetes tolerated 2. Avoid NSAIDs including Mobic 3. Protonix 40 mg twice a day 4. Patient instructed to follow-up with gastroenterology in 1-2 weeks for biopsy results Thank you for this consultation, patient is cleared for discharge from gastroenterology Dr. Scott I agree with the dictator's note, documented as a scribe by Raquel Lowery.
[2020-10-02 11:54] LABS: Glucose,Whole Blood 162 mg/dL (75-99)
[2020-10-02] MEDS ORDERED: SYMBICORT 160-4.5 MCG INHALER INHALATION PRN (12:16)
[2020-10-02] MEDS ORDERED: HYDROXYCHLOROQUINE SULFATE 200 MG TAB PO SCH (12:30)
[2020-10-02] MEDS ORDERED: metFORMIN 500 MG TAB PO SCH (12:30)
[2020-10-02] MEDS ORDERED: DULoxetine HCL 60 MG CAPSULE.DR PO SCH (21:00)
--- NOTE | 2020-10-02 22:53 | P.DS ---
Providers Date of admission: 09/29/20 20:00 Attending physician: Stu Khan MD Consults: 09/29/20 18:43 Consult Physician Urgent Consulting Provider: Paula Jackson Consult Reason/Comments: abd pain Do you want consulting provider notified?: Yes Primary care physician: Harpal Queen [facility] Course: Diagnoses: Acute gastritis with epigastric pain and tenderness. Secondary to 2 large nonbleeding antral ulcers Left adrenal nodular thickening Dehydration Hypertension 2 diabetes mellitus Chronic pain syndrome and follow-up with Dr. Miller History of rheumatoid arthritis Hospital course: This is a pleasant 50 years old female with past medical history of hypertension, diabetes mellitus. She is a patient of Dr. Queen she also follow-up with Dr. Miller for pain management and Dr. Harrell for rheumatoid arthritis She presents because of upper abdominal pain and tenderness of one week ago associated with recurrent vomiting which is stopped now. Patient evaluated by sound recordist. CT of the abdomen and pelvis showing left adrenal nodular thickening and fat stranding around the pylorus and antrum of the stomach, rule out ulcer, neoplasm or gastritis per radiologist Patient underwent EGD showing 2 large nonbleeding antral ulcers without high- risk stigmata for bleeding Patient her symptoms improved from day to offer hospitalization when she was placed on Protonix twice daily. On the day of discharge patient was asymptomatic and back to her normal self. Nausea vomiting. Tolerating diet well. Abdominal pain. Has regular bowel movement. Patient was cleared for discharge by sound recordist. Patient wants to be discharged home today. Patient is aware of both her left adrenal gland nodular thickening, I discussed including but not limited to cancer are explained to her and she verbalized understanding and acceptance but she does not want to do the CAT scan/MRI in the hospital and she wants to follow up with her AC[facility] Dr. Queen first and she agrees with the appointments made for her on 10/08 and told me she will follow up. I spoke with Dr. Queen about the patient and discussed the case with her, with a recommendation that the patient follow-up with her GI appointment with for follow-up of the biopsy result. Also she needs CT/MRI and renal mass protocol for her left adrenal nodular thickening she kindly took note of these and she will follow up with the patient on her appointment on 10/08 and told me she will order a CAT scan/MRI for Problems and management plan were discussed with the patient and he verbalized understanding and acceptance Patient was found stable and can be discharged home however he needs follow-up as an outpatient. Patient was instructed to follow up with PCP within one week and patient agrees Patient was instructed to follow up with Dr. Mota on 10/16 and she agrees with this appointment and told me she will follow up the results of biopsy with him. Risk of cancer are also explained to her and she verbalized understanding and acceptance Physical exam Gen: patient is a AAOx3, no distress CVS: S1-S2, RRR, no murmur Lungs: B/L CTA, no wheezing Abdomen: soft, no distention, no tenderness, positive bowel sounds Extremity: no leg edema or induration Time spent more than 35 minutes Patient Condition at Discharge: Fair Plan - Discharge Summary Discharge Rx Participant: No New Discharge Prescriptions: New Pantoprazole Sodium [Protonix] 40 mg PO BID #60 tablet.dr [place] Bcise 2mg Autoinject 2 mg INJ MAX ARIPiprazole [Abilify] 20 mg PO DAILY Budesonide/Formoterol Fumarate [Symbicort 160-4.5 Mcg Inhaler] 2 puff INHALATION RT-BID PRN PRN Reason: Shortness Of Breath Dapagliflozin Propanediol [Farxiga] 10 mg PO DAILY Etanercept [Enbrel Sureclick] 5 mg INJ MAX Hydroxychloroquine Sulfate [Plaquenil] 200 mg PO BID Morphine Sulfate ER [Ms Contin] 15 mg PO BID Simvastatin [Zocor] 20 mg PO HS DULoxetine HCL [Cymbalta] 120 mg PO HS Fluticasone Nasal [place] [Flonase Nasal [place]] 1 spray EA NOSTRIL DAILY PRN PRN Reason: ALLERGIES HYDROcodone/APAP 10-325MG [[place] 10-325] 1 tab PO DAILY Insulin Detemir [Levemir Flextouch] 50 unit SQ HS metFORMIN HCL [Glucophage] 500 mg PO BID Discontinued Meloxicam [Mobic] 15 mg PO DAILY PRN PRN Reason: Pain Metoprolol Succinate [Toprol XL] 100 mg PO DAILY Discharge Medication List ARIPiprazole [Abilify] 20 mg PO DAILY 09/29/20 [History] Budesonide/Formoterol Fumarate [Symbicort 160-4.5 Mcg Inhaler] 2 puff INHALATION RT-BID PRN 09/29/20 [History] Bydureon Bcise 2mg Autoinject 2 mg INJ MAX 09/29/20 [History] DULoxetine HCL [Cymbalta] 120 mg PO HS 09/29/20 [History] Dapagliflozin Propanediol [Farxiga] 10 mg PO DAILY 09/29/20 [History] Etanercept [Enbrel Sureclick] 5 mg INJ MAX 09/29/20 [History] Fluticasone Nasal [place] [Flonase Nasal [place]] 1 spray EA NOSTRIL DAILY PRN 09/29/20 [History] HYDROcodone/APAP 10-325MG [[place] 10-325] 1 tab PO DAILY 09/29/20 [History] Hydroxychloroquine Sulfate [Plaquenil] 200 mg PO BID 09/29/20 [History] Insulin Detemir [Levemir Flextouch] 50 unit SQ HS 09/29/20 [History] Morphine Sulfate ER [Ms Contin] 15 mg PO BID 09/29/20 [History] Simvastatin [Zocor] 20 mg PO HS 09/29/20 [History] metFORMIN HCL [Glucophage] 500 mg PO BID 09/29/20 [History] Pantoprazole Sodium [Protonix] 40 mg PO BID #60 tablet. 10/02/20 [Rx] Follow up Appointment(s)/Referral(s): Scar Scott MD [STAFF PHYSICIAN] - 10/16/20 3:00 pm Harpal Queen DO [Primary Care Provider] - 10/08/20 1:15 pm Patient Instructions/Handouts: Peptic Ulcer (DC), Abdominal Pain (ED) Activity/Diet/Wound Care/Special Instructions: heart healthy diet diet activities are restricted till you see your doctor we recommend strict avoidance for NSAIDs, like no mobic , no motrin, no naproxen or other NSAIDs you will need repeat EGD in 8 weeks, to ensure healing of your stomach ulcers Discharge Disposition: HOME SELF-CARE
== END 2020-10-02 13:40 | disposition home or self-care (01) ==
LOC: EC 11:44 → 6NMEDSUR 20:00
PROVIDERS: ADMIT Internal Medicine; ATTEND Internal Medicine
DX: K29.00 Acute gastritis without bleeding (principal); K25.9 Gastric ulcer, unspecified as acute or chronic, without hemorrhage or perforation; E86.0 Dehydration; E27.9 Disorder of adrenal gland, unspecified; Z20.822 Contact with and (suspected) exposure to COVID-19; I10 Essential (primary) hypertension; E11.9 Type 2 diabetes mellitus without complications; M06.9 Rheumatoid arthritis, unspecified; E78.5 Hyperlipidemia, unspecified; R59.1 Generalized enlarged lymph nodes; K76.0 Fatty (change of) liver, not elsewhere classified; M19.90 Unspecified osteoarthritis, unspecified site; G89.4 Chronic pain syndrome; N28.89 Other specified disorders of kidney and ureter; Z79.4 Long term (current) use of insulin; Z79.51 Long term (current) use of inhaled steroids; Z79.899 Other long term (current) drug therapy; Z88.0 Allergy status to penicillin; Z87.891 Personal history of nicotine dependence
CPT/HCPCS: 43239; 96374; 99285; 36415; 88305; 80053; 80048 ×2; 82150; 83605; 83690; 85025 ×3; 85610; 85730; 81001; 87635; 74018; 76700; 74176; G0378 ×4; J2405; J2001; J2704; C9113 ×3

== ENCOUNTER → 2020-11-05 | Outpatient (CLI) | payer MEDICARE ==
--- NOTE | 2020-11-05 14:48 | CT ---
EXAMINATION TYPE: CT abdomen wo/w con DATE OF EXAM: 11/05/2020 COMPARISON: 09/29/2020 HISTORY: Adrenal mass CT DLP: 1495.2 mGycm CONTRAST: CT scan of the abdomen and pelvis is performed with Oral Contrast and without and with IV Contrast, p atient injected with 100 ml mL of Isovue 300. FINDINGS: LUNG BASES-: No visible nodule. No infiltrate. LIVER/GB: No calcified gallstones. There is hepatic steatosis noted with mild hepatomegaly. No spa ce occupying hepatic lesion. Biliary tree is of normal caliber. PANCREAS: No inflammation. No distinct mass. SPLEEN: No splenic enlargement. No lesion seen. ADRENALS: Left adrenal nodule measuring 2 cm with internal foci of the fat compatible with adenoma. T he right adrenal gland is free of nodule. No thickening. KIDNEYS/BLADDER: No hydronephrosis. No nephrolithiasis. No distinct renal mass. Urinary bladder g rossly unremarkable. Dense calcification at the origin of the right renal artery. BOWEL: The visualized bowel loops are of normal caliber. LYMPH NODES: No greater than 1cm abdominal or pelvic lymph nodes are appreciated. AORTA: No significant abnormality. OSSEOUS STRUCTURES: No significant abnormality is seen. OTHER: No significant additional abnormality is seen. IMPRESSION: 1. Left adrenal nodule compatible with adenoma.
== END | disposition home or self-care (01) ==
LOC: RADCTMAIN 13:15
PROVIDERS: ATTEND Family Medicine
DX: E27.8 Other specified disorders of adrenal gland (principal)
CPT/HCPCS: 82565; 84520; 74170; Q9967

== ENCOUNTER → 2020-11-21 | Outpatient (CLI) | payer MEDICARE | END | disposition home or self-care (01) | LOC: LABWHC1 07:46 | PROVIDERS: ATTEND Family Medicine | DX: D35.00 Benign neoplasm of unspecified adrenal gland (principal) | CPT/HCPCS: 36415; 82088; 82533; 83835; 84244 ==

== ENCOUNTER 2020-11-24 07:02 | Day surgery (SDC) | payer MEDICARE ==
[~2020-11-24 07:02] MED LIST: LACTATED RINGERS 1,000 ML IV SCH; LIDOCAINE 1% (10MG/ML) FOR IV START INTRADERMA PRN
[2020-11-24 07:26] VITALS: TEMP 97
[2020-11-24 07:34] LABS: Glucose,Whole Blood 198 mg/dL (75-99)
[2020-11-24] MEDS ORDERED: PROPOFOL 10 MG/ML 20 ML VIAL IV ONE (07:37)
[2020-11-24] MEDS ORDERED: IV FLUID CONTINUATION 1,000 ML IV ONE (08:10)
--- NOTE | 2020-11-24 08:12 | P.PCN ---
Date of Procedure: 11/24/20 Description of Procedure: Brief history: Patient is a pleasant 50-year-old female presenting for outpatient esophagogastroduodenoscopy and colonoscopy for gastric ulcers and screening for malignant neoplasm in the colon. Patient was hospital where she was found to have 2 large cratered gastric ulcers with negative biopsies. She reports her last colonoscopy was in her 40s in 2010 and significant for hemorrhoids. Procedure performed: Esophagogastroduodenoscopy with biopsy Colonoscopy with polypectomy Estimated blood loss: Minimal. Preoperative diagnosis: Multiple gastric ulcers, gastric ulcers, screening for malignant neoplasm colon, last colonoscopy in her 40s in 2010 . Anesthesia: MAC Procedure: After informed consent was obtained from the patient was brought into the endoscopy unit and IV sedation was administered by anesthesia under continuous monitoring. Initially upper endoscopy was done. The Olympus GF 190 video endoscope was inserted into the mouth and esophagus intubated without any difficulty and was gradually advanced into the stomach and duodenum and carefully examined. The bulb and second part of the duodenum appeared normal, With biopsies taken. The scope was then withdrawn into the stomach adequately insufflated with air and upon careful examination the antrum and body, cardia and fundus appeared normal, Except for some mild punctate erythema suggestive of mild gastritis and 2 well healing ulcers in the antrum with biopsies of antrum taken. The scope was then withdrawn into the esophagus. The GE junction was located at 40 cm to the incisors. It appeared regular with no erythema erosions or ulcerations. Rest of the esophagus appeared normal. Patient tolerated the procedure well. At this time the patient continued to remain sedation. Initial digital rectal examination was normal. Olympus CF 190 video colonoscope was then inserted into the rectum and gradually advanced to the cecum without any difficulty. Careful examination was performed as the scope was gradually being withdrawn. The prep was excellent. The cecum, ascending colon, transverse colon, descending colon, sigmoid colon and rectum appeared normal, with a diminutive 2 mm rectal polyp removed.. Retroflexion was performed in the rectum and no lesions were noted and low-grade internal hemorrhoids seen. Patient tolerated the procedure well. Impression: 1. 2 well healing ulcers. Mild gastritis. Biopsies of the duodenum and the antrum and the area of the well-healed ulcers. 2. Diminutive rectal polyp removed with cold forceps. Internal hemorrhoids. Recommendations: Findings of this examination were discussed with the patient as well as her family. Okay to resume diet. Okay to resume medications. Continue PPI therapy for now. Await pathology from biopsies and polypectomy. Recommend repeat colonoscopy in 7 years for colon polyp pending pathology from polypectomy.
[2020-11-24 08:32] VITALS: BP 106/69; PULSE 72; RESP 18
== END 2020-11-24 08:56 | disposition home or self-care (01) ==
LOC: ORWHC2ENDO 07:02
PROVIDERS: ATTEND Internal Medicine
DX: Z12.11 Encounter for screening for malignant neoplasm of colon (principal); K29.50 Unspecified chronic gastritis without bleeding; D12.8 Benign neoplasm of rectum; Z88.0 Allergy status to penicillin; I10 Essential (primary) hypertension; E78.5 Hyperlipidemia, unspecified; Z87.891 Personal history of nicotine dependence; E11.9 Type 2 diabetes mellitus without complications; F41.9 Anxiety disorder, unspecified; F32.9 Major depressive disorder, single episode, unspecified; K58.9 Irritable bowel syndrome, unspecified; G89.29 Other chronic pain; Z79.4 Long term (current) use of insulin; Z79.899 Other long term (current) drug therapy; Z79.51 Long term (current) use of inhaled steroids
CPT/HCPCS: 45380; 43239; J2704; 88305; 88342

== ENCOUNTER → 2021-12-28 | Outpatient (CLI) | payer MEDICARE | END | disposition home or self-care (01) | LOC: LABPAT 07:53 | PROVIDERS: ATTEND Orthopaedic Surgery | DX: Z01.812 Encounter for preprocedural laboratory examination (principal); Z22.322 Carrier or suspected carrier of Methicillin resistant Staphylococcus aureus; M17.12 Unilateral primary osteoarthritis, left knee | CPT/HCPCS: 87070 ==

== ENCOUNTER → 2021-12-28 | Outpatient (CLI) | payer MEDICARE ==
[2021-12-28 11:28] LABS: ALT 50 U/L (8-44); AST 28 U/L (13-35); African American GFR (CKD) 77.5 (60.0-200.0); Albumin 4.4 g/dL (3.8-4.9); Albumin/Globulin Ratio 1.71 (1.60-3.17); Alkaline Phosphatase 86 U/L (41-126); BUN/Creat Ratio 27.89 Ratio (12.00-20.00); Blood Urea Nitrogen 27.3 mg/dL (9.0-27.0); Calcium 9.3 mg/dL (8.7-10.3); Carbon Dioxide 22.3 mmol/L (20.0-27.5); Chloride 100 mmol/L (96-109); Chol/HDL Ratio 2.37 Ratio; Globulin 2.6 g/dL (1.6-3.3); Glucose 138 mg/dL (70-110); Non-African American GFR(CKD) 66.9 (60.0-200.0); Potassium 4.8 mmol/L (3.5-5.5); Sodium 137 mmol/L (135-145)
[2021-12-28 20:42] LABS: Microalbumin Creatinine Ratio <30 mg/g Creat (0-30); Urine Creatinine 24.7 mg/dL (28.0-217.0)
== END | disposition home or self-care (01) ==
LOC: LABWHC1 07:56
PROVIDERS: ATTEND Internal Medicine
DX: E11.65 Type 2 diabetes mellitus with hyperglycemia (principal); D35.02 Benign neoplasm of left adrenal gland
CPT/HCPCS: 36415; 80053; 80061; 82024; 82043; 82533; 82570; 83036

== ENCOUNTER 2022-01-18 10:19 | Day surgery (SDC) | payer MEDICARE ==
[2022-01-14 10:37] VITALS: BMI 28.8
--- NOTE | 2022-01-18 00:11 | HP ---
HISTORY AND PHYSICAL DATE OF SURGERY: 01/18/2022 HISTORY: Gilda Coughlin is a 51-year-old patient seen with symptomatic left knee osteoarthritis. We discussed options for treatment. She elected to proceed with left total knee arthroplasty. Consent regarding the procedure was obtained. Clearance was provided by Dr. Villatoro. PAST MEDICAL HISTORY: Rheumatoid arthritis, insulin-dependent diabetes, chronic opioid use. SURGICAL HISTORY: Knee arthroscopy, right total knee arthroplasty, left knee arthroscopy, wrist surgery. MEDICATIONS: Simvastatin, pantoprazole, morphine, metformin, lisinopril, Levemir insulin, . ALLERGIES: Penicillin. SOCIAL HISTORY: She denies current tobacco use. PHYSICAL EVALUATION OF THE LEFT KNEE: Range of motion is -7/8 to 110 degrees. Mild effusion. Tenderness to medial joint line. Crepitus, medial lateral patellofemoral compartments with range of motion. Pain with patellofemoral compression. Ligaments stable. Hip rotation without pain. Her distal neurovascular exam is intact. RADIOGRAPHS: Left knee radiographs reveal severe osteoarthritic changes. IMPRESSION: 1. Left knee osteoarthritis. 2. Rheumatoid arthritis. 3. Insulin-dependent diabetes. 4. Chronic opioid use. PLAN: Left total knee arthroplasty. MMODL / IJN: [id number] /
[~2022-01-18 10:19] MED LIST changes: +ACETAMINOPHEN TAB 500 MG TAB PO PRN; +DEXAMETHASONE SOD PHOSPHATE 4 MG/ML 1 ML VIAL IV ONE; +HYDROmorphone 0.5 MG/0.5 ML SYRINGE IVP PRN; -LACTATED RINGERS 1,000 ML IV SCH; +MELOXICAM 7.5 MG TAB PO PRN; +MIDAZOLAM 2 MG/2 ML VIAL IV PRN; +TRANEXAMIC ACID IN NACL,ISO-OS 1,000 MG in SALINE 1 100ML.BAG IVPB PRN
[2022-01-18] MEDS: ONDANSETRON 4 MG/2 ML VIAL IVP ONE ×2 (11:13→19:02)
[2022-01-18] MEDS: LACTATED RINGERS 1,000 ML IV SCH ×2 (11:13→19:02)
[2022-01-18 11:16] LABS: Glucose,Whole Blood 111 mg/dL (70-110)
[2022-01-18] MEDS ORDERED: fentaNYL (PF) 50 MCG/ML 2 ML AMP IVP ONE (11:41)
[2022-01-18] MEDS ORDERED: SODIUM CHLORIDE 0.9% (PF) 10 ML VIAL ONE (12:41)
[2022-01-18] MEDS ORDERED: ROPIVACAINE 5 MG/ML 30 ML VIAL ONE (12:41)
[2022-01-18] MEDS ORDERED: fentaNYL (PF) 50 MCG/ML 2 ML AMP ONE (12:41)
[2022-01-18] MEDS ORDERED: HYDROmorphone (PF) 1 MG/ML ONE (12:41)
[2022-01-18] MEDS ORDERED: LIDOCAINE 2% INJ 20 MG/ML (2 ML VIAL) ONE (12:41)
[2022-01-18] MEDS ORDERED: SUCCINYLCHOLINE CHLORIDE 200 MG/10 ML VIAL IV ONE (12:41)
[2022-01-18] MEDS ORDERED: PROPOFOL 10 MG/ML 20 ML VIAL IV ONE (12:41)
[2022-01-18] MEDS ORDERED: MIDAZOLAM 2 MG/2 ML VIAL ONE (12:41)
[2022-01-18] MEDS ORDERED: TRANEXAMIC ACID IN NACL,ISO-OS 1,000 MG/100 ML BAG ONE (12:41)
[2022-01-18] MEDS ORDERED: ceFAZolin 1,000 MG in SODIUM CHLORIDE 0.9% 1,000 ML IRRIGATION ONE (13:10)
[2022-01-18] MEDS ORDERED: ROPIVACAINE 0.2%-NS ON-Q PUMP 1,090 MG, EMPTY PAIN BALL 1 EACH MISCELLANE PRN (13:27)
--- NOTE | 2022-01-18 13:28 | P.ANPRN ---
Procedure Note - Anesthesia - Nerve Block Performed Left Adductor Canal Time Out Performed: Yes (11:41) Date of Procedure: 01/18/22 Procedure Start Time: : Procedure Stop Time: :50 Location of Patient: PreOp Indication: Acute Post-Operative Pain, Requested by Surgeon (Dr Cornejo) Sedation Type: Sedate with meaningful contact maintained Preparation: Sterile Prep, Sterile Dressing Position: Supine Catheter: Indwelling Needle Types: Pajunk Needle Gauge: 21 Ultrasound used to visualize needle placement: Yes Ultrasound used to observe medication spread: Yes Injectate: 0.5% Ropivacaine (see comment for volume) (15cc) Blood Aspirated: No Pain Paresthesia on Injection Noted: No Resistance on Injection: Normal Image Stored and Saved: Yes Events: Uneventful and Well Tolerated
--- NOTE | 2022-01-18 13:29 | P.ANPRN ---
Procedure Note - Anesthesia - Nerve Block Performed Left iPack Time Out Performed: Yes Date of Procedure: 01/18/22 Procedure Start Time: 11:51 Procedure Stop Time: 11:56 Location of Patient: PreOp Indication: Acute Post-Operative Pain, Requested by Surgeon (Dr Quintero) Sedation Type: Sedate with meaningful contact maintained Preparation: Sterile Prep Position: Supine Catheter: None Needle Types: Pajunk Needle Gauge: 21 Ultrasound used to visualize needle placement: Yes Ultrasound used to observe medication spread: Yes Injectate: 0.5% Ropivacaine (see comment for volume) (15cc + 5cc PF Normal saline) Blood Aspirated: No Pain Paresthesia on Injection Noted: No Resistance on Injection: Normal Image Stored and Saved: Yes Events: Uneventful and Well Tolerated
[2022-01-18] MEDS ORDERED: LACTATED RINGERS 1,000 ML IV ONE (14:19)
[2022-01-18] MEDS ORDERED: ONDANSETRON 4 MG/2 ML VIAL IVP PRN (14:29)
[2022-01-18] MEDS ORDERED: NALOXONE 0.4 MG/ML 1 ML VIAL IV PRN (14:29)
[2022-01-18] MEDS ORDERED: HYDROmorphone 0.5 MG/0.5 ML SYRINGE IVP PRN ×2 (14:29)
[2022-01-18] MEDS ORDERED: HYDROmorphone 1 MG/ML 1 ML SYRINGE IVP PRN (14:29)
[2022-01-18] MEDS ORDERED: HYDROcodone/APAP 7.5-325MG 1 EACH TAB PO PRN (14:29)
--- NOTE | 2022-01-18 14:29 | P.OP ---
Date of Procedure: 01/18/22 Preoperative Diagnosis: Left knee osteoarthritis Postoperative Diagnosis: Left knee osteoarthritis Procedure(s) Performed: Left total knee arthroplasty Implants: 1. Depuy attune size 6 narrow left cruciate retaining cemented femur 2. Depuy attune size 6 fixed bearing cemented tibial baseplate 3. Depuy attune size 6 fixed bearing cruciate retaining 5 mm polyethylene tibial insert 4. Depuy attune 35 mm all polyethylene cemented patella Anesthesia: GETA, regional (Adductor canal catheter, Ipack block) Surgeon: Marcio Quintero 911 Telecommunicator #1: Tom Schrader Estimated Blood Loss (ml): 55 Pathology: other (Bone) Condition: stable Disposition: PACU Indications for Procedure: 51-year-old patient seen with symptomatic left knee osteoarthritis. After treatment options were discussed, she elected to proceed with left total knee arthroplasty. Operative Findings: See description of procedure Description of Procedure: Patient was taken to the operative suite after having an adductor canal catheter placed by the department of anesthesia as well as and Ipack block for postoperative pain management. Patient underwent a general anesthetic by the department of anesthesia. Patient was given preoperative IV intake antibiotics and TXA. A well-padded tourniquet was placed about the left lower extremity. The lower extremity was then prepped and draped in the normal sterile orthopedic fashion. The extremity was elevated, a tourniquet was insufflated to 300. A standard anterior incision was made sharply through skin. Dissection was taken down through the subcutaneous soft tissues down to the extensor mechanism. A medial arthrotomy was performed, patella was everted and knee was flexed. There was advanced osteoarthritis noted. I introduced my distal intramedullary femoral drill. I then introduced the distal femoral cutting jig. Carlos TRIVEDI secured the cutting jig with 2 pins. I held retractors in position while Carlos TRIVEDI performed the distal femoral resection through the guide area we now removed her distal femoral cutting guide. We now placed our 4-in-1 femoral cutting block and positioned and it was secured with 2 pins by Carlos TRIVEDI while I held the block in position. The distal femoral finishing was now completed. A proximal tibial cutting guide was positioned. I held the guide in the appropriate position with both hands well Carlos TRIVEDI inserted stabilizing pins into the guide. Proximal tibial cut was made. We now placed a trial femoral component into position, along with an appropriate size tibial tray and insert. We now took the knee through range of motion and had full extension good flexion and good overall soft tissue balance noted. The patella was everted and stabilized with 2 towel clips held by Carlos TRIVEDI while I performed a flush with patellar quad tendon utilizing a fresh sawblade. We templated the patella, appropriate drill holes were made. An appropriate trial patella was positioned, knee was taken through full range of motion with the patella tracking very nicely. The trial patella was removed. Drill holes were made through the femoral component. All trial components were removed after marking off the appropriate rotation of the tibia. Retractors were now positioned along the proximal tibia. An appropriate keel punch was made with the appropriate size tibial guide by myself on Carlos TRIVEDI assisted by holding retractors. At this point appropriate size implants were chosen and opened. The joint was irrigated copiously with pulse lavage mechanical irrigation. The posterior capsule was infiltrated with local analgesic. The wound was irrigated with pulse lavage mechanical irrigation. We mixed antibiotic methylmethacrylate. We placed the knee into flexion. We placed multiple retractors assisted by Carlos TRIVEDI to expose the proximal tibia. Once the methyl methacrylate was ready, the tibial component was cemented into place removing any excess methylmethacrylate form by both myself and Carlos TRIVEDI. The femoral component was cemented into place removing the removing any excess methylmethacrylate performed by both myself and Carlos TRIVEDI. We then inserted the appropriate size polyethylene tibial insert. We made sure that it was locked into position. We took the knee into full extension, and then back in a flexion making sure we had removed any excess methylmethacrylate. The patellar component was then cemented down and secured with clamp. Excess methylmethacrylate removed. We kept the knee in full extension, patellar clamp in position until methylmethacrylate had hardened. Once it had hardened the patellar clamp was removed. The knee was taken through full range of motion. The patella tracked nicely. There was good soft tissue balancing. The tourniquet was now released. Additional hemostasis was achieved via electrocautery. A second gram of TXA was given. The wound again was irrigated with pulse lavage mechanical irrigation. The superficial soft tissues were infiltrated local analgesic. The extensor mechanism was repaired with Ethibond suture. We checked the repair with range of motion and it was stable. The subcutaneous soft tissues were repaired with Vicryl in layers. The skin was approximated with pernio/Dermabond. Sterile dressings were applied followed by loose web roll and Fredrick bandage. The patient was transferred to a bed, and taken to recovery in stable and satisfactory condition. Carlos TRIVEDI assisted with this complex procedure.
[2022-01-18 15:05] LABS: Glucose,Whole Blood 84 mg/dL (70-110)
[2022-01-18] MEDS ORDERED: ROPIVACAINE 0.2%-NS ON-Q PUMP 2 MG/ML EACH MISCELLANE ONE (15:05)
--- NOTE | 2022-01-18 16:17 | XR ---
Left knee HISTORY: Status post left knee arthroplasty 2 views of the left knee Patient is status post left knee arthroplasty. There is anatomic alignment. Lucencies present within the soft tissues. There is no fracture or dislocation. IMPRESSION: Orthopedic follow-up
[2022-01-18 16:52] LABS: Glucose,Whole Blood 125 mg/dL (70-110)
[2022-01-18] MEDS ORDERED: SYMBICORT 160-4.5 MCG INHALER INHALATION PRN (19:32)
[2022-01-18] MEDS ORDERED: FLUTICASONE 50MCG/SPRAY NASAL 16GM EA NOSTRIL PRN (19:32)
[2022-01-18] MEDS ORDERED: DEXTROSE 50% SYRINGE 50 ML IVP PRN ×2 (19:33)
[2022-01-18 19:48] LABS: Glucose,Whole Blood 201 mg/dL (70-110)
[2022-01-18] MEDS: PREGABALIN 75 MG CAP PO SCH (20:01)
[2022-01-18] MEDS: PANTOPRAZOLE 40 MG TABLET PO SCH (20:01)
[2022-01-18] MEDS: INSULIN ASPART (NovoLOG) 100 UNIT/ML VIAL SQ SCH (20:06)
[2022-01-18] MEDS ORDERED: ATORVASTATIN 10 MG TAB PO SCH (21:00)
[2022-01-18] MEDS ORDERED: DULoxetine HCL 60 MG CAPSULE.DR PO SCH (21:00)
[2022-01-18] MEDS ORDERED: SENNOSIDES-DOCUSATE SODIUM 1 EACH TAB PO SCH (21:00)
[2022-01-19] MEDS ORDERED: ENOXAPARIN 30 MG/0.3 ML SYRINGE SQ SCH (04:00)
[2022-01-19] MEDS: LACTATED RINGERS 1,000 ML IV SCH ×2 (05:00)
[2022-01-19] MEDS: HYDROcodone/APAP 5-325MG 1 EACH TAB PO PRN ×2 (06:25→12:04)
[2022-01-19 07:06] LABS: Glucose,Whole Blood 134 mg/dL (70-110)
[2022-01-19] MEDS: INSULIN ASPART (NovoLOG) 100 UNIT/ML VIAL SQ SCH ×2 (08:46→12:05)
--- NOTE | 2022-01-19 08:51 | P.PN ---
Progress Note - Text Progress Note Date: 01/19/22 (0646) Anesthesiology Postop day 1 status post total knee arthroplasty with adductor canal catheter. Patient doing well. VAS 4 out of 10. Gross strength intact in lower extremity. Afebrile. Denies alterations in sensorium. Catheter site intact. Heart regular rate Lungs nonlabored Abdomen nondistended Assessment: Postop day 1 status post total knee arthroplasty with adductor canal catheter Plan: All questions answered. Maintain catheter 2 more days with patient removal at home. Instructions were given at discharge.
[2022-01-19 08:58] VITALS: BP 152/92; PULSE 96; RESP 16; TEMP 97.9
[2022-01-19] MEDS ORDERED: DAPAGLIFLOZIN PROPANEDIOL 10 MG TABLET PO SCH (09:00)
[2022-01-19 10:19] LABS: Basophils # (A) 0.06 X 10*3/uL (0.00-0.10); Basophils % (A) 0.8 %; Eosinophils # (A) 0.02 X 10*3/uL (0.04-0.35); Eosinophils % (A) 0.3 %; HCT 38.8 % (37.2-46.3); HGB 12.9 g/dL (12.0-15.0); Immature Grans, Automated 0.3 %; Lymphocytes # (A) 1.41 X 10*3/uL (0.90-5.00); Lymphocytes % (A) 18.3 %; MCH 29.6 pg (27.0-32.0); MCHC 33.2 g/dL (32.0-37.0); Mean Platelet Volume 11.8 fL (9.5-12.2); Monocytes # (A) 0.77 X 10*3/uL (0.20-1.00); NRBC Per 100 WBC 0 /100 WBCS (0.0-0.0); Neutrophils # (A) 5.41 X 10*3/uL (1.80-7.70); Neutrophils % (A) 70.3 %; Platelet Count 152 X 10*3/uL (140-440); RBC 4.36 X 10*6/uL (4.10-5.20); RDW 13.1 % (11.5-14.5); WBC 7.69 X 10*3/uL (4.50-10.00)
[2022-01-19] MEDS: PREGABALIN 75 MG CAP PO SCH (10:40)
[2022-01-19] MEDS: PANTOPRAZOLE 40 MG TABLET PO SCH (10:41)
[2022-01-19 11:30] LABS: Glucose,Whole Blood 201 mg/dL (70-110)
[2022-01-19] MEDS ORDERED: MULTIVITAMINS, THERA 1 EACH TAB PO SCH (12:00)
--- NOTE | 2022-01-19 12:28 | P.PN ---
Subjective Progress Note Date: 01/19/22 Principal diagnosis: Status post left total knee arthroplasty Patient evaluated at bedside, she is resting comfortably in her hospital chair. Patient did ambulate well with physical therapy. Pain is currently controlled with current medication. Patient does take narcotics chronically. Patient has had her other knee done 14 years ago. She denies any headaches, lightheadedn ess, chest pain or shortness of breath. Objective - Vital Signs Vital signs: Vital Signs Temp 97.9 F 01/19/22 08:00 Pulse 96 01/19/22 09:14 Resp 16 01/19/22 09:14 BP 152/92 01/19/22 08:00 Pulse Ox 97 01/19/22 08:00 FiO2 Intake & Output 01/18/22 01/19/22 01/19/22 18:59 06:59 18:59 Intake Total 1321 Output Total 55 Balance 1266 Weight 85 kg Intake: IV 1201 Oral 120 Output: Estimated Blood Loss 55 Other: Voiding Method Toilet Toilet # Voids 1 1 # Bowel Movements 0 - Exam Left lower extremity: Incision is clean, dry, and intact. The foam dressing is in good condition. There is minimal soft tissue swelling and ecchymosis surrounding the medial and lateral aspects of the incision. Calf is soft, no tenderness with palpation. Plantar flexion, dorsiflexion, EHL, FHL are intact. Sensory exam to light touch throughout the extremity is intact, dorsal pedis pulses 2+. - Labs CBC & Chem 7: 01/19/22 07:02 Labs: Abnormal Lab Results - Last 24 Hours (Table) 01/18/22 01/18/22 01/19/22 Range/Units 16:51 19:47 07:02 Eosinophils # 0.02 L (0.04-0.35) X 10*3/uL POC Glucose (mg/dL) 125 H 201 H (70-110) mg/dL 01/19/22 01/19/22 Range/Units 07:04 11:28 Eosinophils # (0.04-0.35) X 10*3/uL POC Glucose (mg/dL) 134 H 201 H (70-110) mg/dL Assessment and Plan Assessment: Postoperative day #1 status post left total knee arthroplasty Plan: Pain control, patient will resume her normally prescribed pain medication after discharge DVT prophylaxis, aspirin 81 mg for 30 days Wound care instructions are discussed with patient at bedside, this to include showering instructions, icing and elevating, using the On-Q pain catheter Therapy/nursing after discharge Medical recommendations Discharge planning: Patient stable for discharge home today Time with Patient: Less than 30
--- NOTE | 2022-01-19 12:30 | P.DS ---
Providers Date of admission: 01/18/2022 Expected date of discharge: 01/19/22 Attending physician: Marcio Quintero Consults: 01/18/22 14:29 Consult Physician Routine Consulting Provider: Nimesh Mosley Consult Reason/Comments: Medical management Do you want consulting provider notified?: Yes Primary care physician: Harpal Queen [facility] Course: Date of admission: 01/18/2022 Date of discharge: 01/19/2022 Admission diagnosis: Status post left total knee arthroplasty Discharge diagnosis: Same Attending physician: Dr. Quintero Surgical procedures: Left total knee arthroplasty Brief history: Patient is a 51-year-old female with a history of progressive primary left knee osteoarthritis. At this point patient has failed conservative treatment measures and has opted to proceed with a elective left total knee arthroplasty. Hospital course: Details of patient's surgery can be found in operative report. Patient tolerated the procedure well and was subsequently transported to orthopedic floor. Patient's orthopeidc and medical care was provided daily. Patient had daily laboratory tests performed for evaluation of overall blood counts. Patient had daily physical therapy to include strengthening range of motion as well as education with walker ambulation. Patient was treated with Lovenox for their postoperative DVT prophylaxis during their inpatient stay. Melo perez was noted to have a relatively uneventful postoperative course. Patient reported satisfactory pain control with oral pain medications by postoperative day 0. Patient showed satisfactory progress with physical therapy. Patient moved steadily through the program and had no difficulty meeting the goals by postoperative day 1. Given patient's otherwise satisfactory course and having met physical therapy goals, plan is to discharge patient [home] on postoperative day 1. Discharge condition/disposition: Patient will be discharged [home] in stable condition. Discharge medications: Instructions are given on resumption of patient's normal daily medications per primary care recommendation, in addition patient will be prescribed aspirin 81 mg. Discharge instructions: 1. Wound care and infection precautions, [keep incision dry and covered while showering], no lotions, creams, moisturizers. No soaking, tubs, pools, hottubs. Do not scrub over the incision. 2. Weight-bear [as tolerated] with walker / cane until follow-up. 3. Ice and elevate when necessary. Do not exceed 20 minutes per hour with ice pack. 4. Utilize compression sleeve until seen at first follow up appointment. 5. Visiting nursing care. 6. Home physical therapy [including home CPM]. 7. Pain meds and anticoagulants per prescription. 8. Pain medication has potential to cause constipation. Increase oral fluid and fiber intake. Contact primary care provider if you have not had a bowel movement within 48 hours after discharge 9. No anti-inflammatory medication until discussed at first post operative visit, this including Motrin, Aleve, Mobic, Diclofenac. 10. Follow up in office at 2 weeks postop with Carlos Schrader PA-C/Efraín Lowery 11. Follow up with your primary care doctor 7-10 days after discharge. 12. Contact [facility] with any questions, . Procedures: Left total knee arthroplasty Patient Condition at Discharge: Good Plan - Discharge Summary Discharge Rx Participant: Yes New Discharge Prescriptions: New Aspirin [Adult Low Dose Aspirin EC] 81 mg PO BID #60 tab Continue Bydureon Bcise 2mg Autoinject 2 mg INJ MAX ARIPiprazole [Abilify] 20 mg PO HS Budesonide/Formoterol Fumarate [Symbicort 160-4.5 Mcg Inhaler] 2 puff INHALATION RT-BID PRN PRN Reason: Shortness Of Breath Dapagliflozin Propanediol [Farxiga] 10 mg PO QAM Etanercept [Enbrel Sureclick] 50 mg INJ MAX Morphine Sulfate ER [Ms Contin] 15 mg PO BID Simvastatin [Zocor] 20 mg PO HS Pantoprazole Sodium [Protonix] 40 mg PO BID #60 tablet. Lisinopril-Hctz 20-25 mg [Zestoretic 20-25] 1 tab PO QAM Pregabalin 225 mg PO BID Insulin Degludec [Tresiba] 80 units SQ QAM DULoxetine HCL [Cymbalta] 60 mg PO HS Fluticasone Nasal [place] [Flonase Nasal [place]] 1 spray EA NOSTRIL DAILY PRN PRN Reason: ALLERGIES HYDROcodone/APAP 10-325MG [[place] 10-325] 1 tab PO DAILY metFORMIN HCL [Glucophage] 500 mg PO BID cloNIDine HCL [Catapres] 0.1 mg PO QAM Pioglitazone [Actos] 30 mg PO DAILY Discharge Medication List ARIPiprazole [Abilify] 20 mg PO HS 09/29/20 [History] Budesonide/Formoterol Fumarate [Symbicort 160-4.5 Mcg Inhaler] 2 puff INHALATION RT-BID PRN 09/29/20 [History] Bydureon Bcise 2mg Autoinject 2 mg INJ MAX 09/29/20 [History] DULoxetine HCL [Cymbalta] 60 mg PO HS 09/29/20 [History] Dapagliflozin Propanediol [Farxiga] 10 mg PO QAM 09/29/20 [History] Etanercept [Enbrel Sureclick] 50 mg INJ MAX 09/29/20 [History] Fluticasone Nasal [place] [Flonase Nasal [place]] 1 spray EA NOSTRIL DAILY PRN 09/29/20 [History] HYDROcodone/APAP 10-325MG [[place] 10-325] 1 tab PO DAILY 09/29/20 [History] Morphine Sulfate ER [Ms Contin] 15 mg PO BID 09/29/20 [History] Simvastatin [Zocor] 20 mg PO HS 09/29/20 [History] metFORMIN HCL [Glucophage] 500 mg PO BID 09/29/20 [History] Pantoprazole Sodium [Protonix] 40 mg PO BID #60 tablet. 10/02/20 [Rx] Lisinopril-Hctz 20-25 mg [Zestoretic 20-25] 1 tab PO QAM 11/20/20 [History] Pregabalin 225 mg PO BID 11/20/20 [History] cloNIDine HCL [Catapres] 0.1 mg PO QAM 11/20/20 [History] Insulin Degludec [Tresiba] 80 units SQ QAM 01/14/22 [History] Pioglitazone [Actos] 30 mg PO DAILY 01/14/22 [History] Aspirin [Adult Low Dose Aspirin EC] 81 mg PO BID #60 tab 01/19/22 [Rx] Follow up Appointment(s)/Referral(s): Efraín Ortiz, PAC [PHYSICIAN SCRUBBER SYSTEM ATTENDANT] - 02/04/22 9:50 am [facility],Equipment [NON-STAFF] - As Needed (*Please call [facility] once home to arrange delivery of the continuous passive motion (CPM) machine. ) [facility], [NON-STAFF] - 1-2 Days ([facility] will call you to schedule your in home physical therapy and nursing visits. ) Patient Instructions/Handouts: Knee Replacement (DC) Activity/Diet/Wound Care/Special Instructions: Orthopedic Discharge Instructions: 1. Wound care and infection precautions, keep incision dry and covered while showering, no lotions, creams, moisturizers. No soaking, pools, hot tubs. Do not scrub over incision. 2. Weight-bear as tolerated with walker / cane until follow-up. 3. Ice and elevate when necessary. Do not exceed 20 minutes per hour with ice pack. 4. Utilize compression sleeve until seen at first follow up appointment. 5. Pain meds and anticoagulants per prescription. 6. Pain medication has potential to cause constipation. Increase oral fluid and fiber intake. Contact primary care provider if you have not had a bowel movement within 48 hours after discharge. 7. No anti-inflammatory medication until discussed at first post operative visit, this including Motrin, Aleve, Mobic, Diclofenac. 8. Follow up in office at 2 weeks postop with Carlos Schrader PA-C/Efraín Ortiz PA-C 9. Follow up with your primary care doctor 7-10 days after discharge. 10. Contact [facility] with any questions, . Orthopedic discharge instructions: 1. Okay to remove bandage on 01/26/2022 2. After removal of bandage, okay to shower directly over incision Discharge Disposition: HOME WITH HOME HEALTH SERVICES
--- NOTE | 2022-01-19 15:21 | P.CONS ---
History of Present Illness - Reason for Consult Consult date: 01/19/22 Postop medical management, left knee - History of Present Illness This is a 51-year-old female who was recently admitted under orthopedic services and is status post left total knee arthroplasty. Patient reports she follows with Dr. Queen in the outpatient setting with a past medical history of diabetes mellitus, hypertension. Patient reports to being a former smoker and denies alcohol or illicit drug use. On exam today patient is maintained on sliding scale with blood sugars within normal limits and is maintained on oral and insulin diabetic regimen in the outpatient setting. Patient was able to work with physical therapy today doing relatively well. Patient reports to passing gas and did have a bowel movement this morning. Patient is voiding with no difficulties. Patient denies shortness of breath or chest pain and does have an incentive spirometer at the bedside which was encouraged to continue using at least 10 times every hour while awake even in the outpatient setting. CBC this morning reveals a WBC of 7.69, hemoglobin is 12.9, platelets are 152 and blood sugars have been well controlled and is currently 134. Patient does normally take blood pressure medications and reports she wants to resume this once home. Patient is 97% on room air and remains afebrile. Left knee surgical site is dry and intact with surgical dressing noted and no surrounding redness or swelling noted on exam. Patient was able to get up and stand without help and reports her pain is well controlled. Patient will be taking ASA 81 mg twice a day for the next few weeks for DVT prophylaxis. Encouraged the patient to follow-up with primary care provider in the outpatient setting along with orthopedics at her scheduled appointment. Review Of Systems: Constitutional: No fever, no chills, no night sweats. No weight change. No weakness, fatigue or lethargy. No daytime sleepiness. EENT: No headache. No blurred vision or double vision, no loss of vision. No loss of Hearing, no ringing in the ears, no dizziness. No nasal drainage or congestion. No epistaxis. No sore throat. Lungs: No shortness of breath, cough, no sputum production. No wheezing. Cardiovascular: No chest pain, no lower extremity edema. No palpitations. No paroxysmal nocturnal dyspnea. No orthopnea. No lightheadedness or dizziness. No syncopal episodes. Abdominal: No abdominal pain. No nausea, vomiting. No diarrhea. No constipation. No bloody or tarry stools.. No loss of appetite. Genitourinary: No dysuria, increased frequency, urgency. No urinary retention. Musculoskeletal: No myalgias. No muscle weakness, no gait dysfunction, no frequent falls. No back pain. No neck pain. Reports minor left knee discomf ort. Integumentary: No wounds, no lesions. No rash or pruritus. No unusual bruising. No change in hair or nails. Neurologic: No aphasia. No facial droop. No change in mentation. No head injury. No headache. No paralysis. No paresthesia. Psychiatric: No depression. No anxiety. No mood swings. Endocrine: No abnormal blood sugars. No weight change. No excessive sweating or thirst. No cold intolerance. PHYSICAL EXAMINATION: GENERAL: The patient is alert and oriented x4, Well developed, well nourished. HEENT: Pupils are round and equally reacting to light. EOMI. no scleral icterus. No conjunctival pallor. Normocephalic, atraumatic. No pharyngeal erythema. No thyromegaly. CARDIOVASCULAR: S1 and S2 muffled PULMONARY: diminished breath sounds bilaterally with no wheezing or rhonchi noted. ABDOMEN: soft. Nontender on exam. obese. non-distended, normoactive bowel sounds. No palpable organomegaly. MUSCULOSKELETAL: No joint swelling or deformity. EXTREMITIES: No cyanosis, clubbing, or pedal edema. NEUROLOGICAL: Gross neurological examination did not reveal any focal deficits. Diffuse weakness SKIN: No rashes. Assessment: Status post left total knee arthroplasty Diabetes mellitus, type 2 insulin-dependent Hypertension history GI prophylaxis DVT prophylaxis Full code Plan: Recommend to continue with current medications and management per orthopedic services. Patient has been seen and evaluated by PT/OT therapy and did relatively well and will be going home with outpatient rehab being set up. Patient with incentive spirometer at the bedside and encourage the patient to continue using at least 10 times every hour while awake. Patient's follow-up CBC was within normal limits with no white count and hemoglobin was stable. Left surgical site on the knee is dry and intact with no increased redness or swelling noted. Patient follows with Dr. Queen in the outpatient setting for diabetes and hypertension management and encouraged to resume home medications. Patient is anticipating discharge today and awaiting her discharge paperwork currently. Discussed with the patient and encouraged outpatient follow-up with primary care provider Dr. Queen along with keeping her scheduled orthopedics appointment. Patient's blood sugars well maintained on sliding scale were well controlled during hospitalization and recommend to continue current regimen. Thank you for this consultation and we will continue to follow during hospitalization. The impression and plan of care has been dictated by Nel Amezcua, nurse practitioner as directed. Dr. Eren MD I have performed a history and examination and MDM of this patient, discussed the same with the dictator, and agree with the dictator's assessment and plan as written ,documented as a scribe. Based on total visit time, I have performed more than 50% of the visit. Any additional findings or plans will be noted. Past Medical History Past Medical History: Diabetes Mellitus, Hypertension Additional Past Medical History / Comment(s): HX STOMACH ULCERS YEARS AGO History of Any Multi-Drug Resistant Organisms: MRSA Year Discovered:: 2009 MDRO Source:: open wound on ABD Past Surgical History: Joint Replacement, Orthopedic Surgery, Uterine Ablation Additional Past Surgical History / Comment(s): orthopedic Past Anesthesia/Blood Transfusion Reactions: No Reported Reaction Past Psychological History: No Psychological Hx Reported Smoking Status: Former smoker Past Alcohol Use History: None Reported Additional Past Alcohol Use History / Comment(s): QUIT SMOKING 2018 Past Drug Use History: None Reported - Past Family History Mother Family Medical History: No Reported History Medications and Allergies Home Medications Medication Instructions Recorded Confirmed Type ARIPiprazole [Abilify] 20 mg PO HS 09/29/20 01/18/22 History Budesonide/Formoterol Fumarate 2 puff INHALATION RT-BID PRN 09/29/20 01/18/22 History [Symbicort 160-4.5 Mcg Inhaler] Bydureon Bcise 2mg Autoinject 2 mg INJ MAX 09/29/20 01/18/22 History DULoxetine HCL [Cymbalta] 60 mg PO HS 09/29/20 01/18/22 History Dapagliflozin Propanediol [Farxiga] 10 mg PO QAM 09/29/20 01/18/22 History Etanercept [Enbrel Sureclick] 50 mg INJ MAX 09/29/20 01/14/22 History Fluticasone Nasal [place] [Flonase 1 spray EA NOSTRIL DAILY PRN 09/29/20 01/18/22 History Nasal [place]] HYDROcodone/APAP 10-325MG [[place] 1 tab PO DAILY 09/29/20 01/18/22 History 10-325] Morphine Sulfate ER [Ms Contin] 15 mg PO BID 09/29/20 01/18/22 History Simvastatin [Zocor] 20 mg PO HS 09/29/20 01/18/22 History metFORMIN HCL [Glucophage] 500 mg PO BID 09/29/20 01/18/22 History Pantoprazole Sodium [Protonix] 40 mg PO BID #60 tablet. 10/02/20 01/18/22 Rx Lisinopril-Hctz 20-25 mg 1 tab PO QAM 11/20/20 01/18/22 History [Zestoretic 20-25] Pregabalin 225 mg PO BID 11/20/20 01/18/22 History cloNIDine HCL [Catapres] 0.1 mg PO QAM 11/20/20 01/18/22 History Insulin Degludec [Tresiba] 80 units SQ QAM 01/14/22 01/18/22 History Pioglitazone [Actos] 30 mg PO DAILY 01/14/22 01/18/22 History Aspirin [Adult Low Dose Aspirin EC] 81 mg PO BID #60 tab 01/19/22 Rx Allergies Allergy/AdvReac Type Severity Reaction Status Date / Time Penicillins AdvReac Nausea & Verified 01/18/22 10:55 Vomiting Physical Exam Vitals: Vital Signs Temp Pulse Pulse Pulse Resp BP BP 01/19/22 09:14 96 16 01/19/22 08:00 97.9 F 96 16 152/92 01/19/22 01:55 98.3 F 99 17 142/83 01/18/22 22:30 16 01/18/22 19:53 98.5 F 98 16 159/92 01/18/22 16:59 97.1 F L 95 17 147/82 01/18/22 16:30 79 16 162/93 01/18/22 16:15 79 16 156/86 01/18/22 16:00 79 16 155/89 01/18/22 15:52 78 16 153/80 01/18/22 15:37 73 16 153/76 01/18/22 15:22 67 16 155/80 01/18/22 15:07 65 15 150/71 01/18/22 14:52 97.5 F L 73 16 141/78 01/18/22 12:14 66 16 01/18/22 11:11 96.4 F L 79 16 110/63 Pulse Ox 01/19/22 09:14 01/19/22 08:00 97 01/19/22 01:55 93 L 01/18/22 22:30 01/18/22 19:53 95 01/18/22 16:59 94 L 01/18/22 16:30 93 L 01/18/22 16:15 95 01/18/22 16:00 97 01/18/22 15:52 96 01/18/22 15:37 01/18/22 15:22 98 01/18/22 15:07 95 01/18/22 14:52 100 01/18/22 12:14 100 01/18/22 11:11 98 Intake and Output 01/18/22 01/19/22 01/19/22 22:59 06:59 14:59 Intake Total 220 Balance 220 Intake: IV 100 Oral 120 Other: Voiding Method Toilet Toilet # Voids 1 1 # Bowel Movements 0 Weight 85 kg Results CBC & Chem 7: 01/19/22 07:02 Labs: Abnormal Lab Results - Last 24 Hours (Table) 01/18/22 01/18/22 01/18/22 Range/Units 11:05 16:51 19:47 POC Glucose (mg/dL) 111 H 125 H 201 H (70-110) mg/dL 01/19/22 Range/Units 07:04 POC Glucose (mg/dL) 134 H (70-110) mg/dL
== END 2022-01-19 13:02 | disposition home health service (06) ==
LOC: OR 10:19 → 4SSUR 14:51 → OR 01-19 13:02
PROVIDERS: ATTEND Orthopaedic Surgery
DX: M17.12 Unilateral primary osteoarthritis, left knee (principal); G89.18 Other acute postprocedural pain; M06.9 Rheumatoid arthritis, unspecified; E11.9 Type 2 diabetes mellitus without complications; Z79.4 Long term (current) use of insulin; Z79.84 Long term (current) use of oral hypoglycemic drugs; Z96.651 Presence of right artificial knee joint; Z79.891 Long term (current) use of opiate analgesic; Z88.0 Allergy status to penicillin; Z98.890 Other specified postprocedural states; Z79.899 Other long term (current) drug therapy
CPT/HCPCS: 27447; 94640; 97161; 64999; 64448; 76942; 85025; 88300; 73560; C1776; C1713 ×2; J2250; J0690 ×3; J2405; J3010; J1650; J1170; J2795

== ENCOUNTER → 2022-05-07 | Outpatient (CLI) | payer MEDICARE ==
--- NOTE | 2022-05-07 11:42 | CT ---
EXAMINATION TYPE: CT adrenal glands wo/w con DATE OF EXAM: 05/07/2022 COMPARISON: 11/05/2020 HISTORY: Adrenal adenoma. CT DLP: 1747.4 mGycm Automated exposure control for dose reduction was used. CONTRAST: Performed without and with IV Contrast, patient injected with 70ml mL of Isovue 300. FINDINGS: ADRENALS: Left adrenal nodule measuring 2 cm is stable in size. Precontrast the adrenal gland measure s 12 Hounsfield units, an initial delayed measures 45 Hounsfield units, and the delayed image measure s 11 Hounsfield units. Absolute washout is 103%. Relative washout is 75.6%. Findings are suggestive of an adenoma. The right adrenal gland is free of nodule. No thickening. ABDOMEN AND PELVIS: There is slightly reduced in attenuation correlate for hepatic steatosis. Spleen homogeneous. Kidneys function symmetrically with no hydronephrosis or nephrolithiasis pancreas has a normal appearance. The bowel gas pattern nonspecific. No pathologic adenopathy. Aorta normal caliber. Osseous structures intact with evidence of multilevel degenerative disc disease. LUNG BASES: Lung bases clear. IMPRESSION: 1. Absolute and relative adrenal CT washout values suggestive of a benign left adrenal adenoma. 2. Hepatic steatosis.
== END | disposition home or self-care (01) ==
LOC: RADCTMAIN 08:22
PROVIDERS: ATTEND Internal Medicine
DX: D35.02 Benign neoplasm of left adrenal gland (principal); K76.0 Fatty (change of) liver, not elsewhere classified
CPT/HCPCS: 82565; 84520; 36415; 74170; Q9967 ×2

== ENCOUNTER → 2023-07-11 | Outpatient (CLI) | payer MEDICARE ==
--- NOTE | 2023-07-13 14:08 | MM ---
Reason for Exam: Screening (asymptomatic). Last mammogram was performed 3 year(s) and 2 month(s) ago. Patient History: Menarche at age 11. First Full-Term at age 21. Postmenopausal. Patient used Hormonal Contraceptives for 2 years. Risk Values: Clair 5 year model risk: 1.1%. NCI Lifetime model risk: 8.4%. Prior Study Comparison: 06/21/2009 Screening Mammogram, [facility]. 01/16/2018 Bilateral Screening Mammogram, [facility]. 05/16/2020 Bilateral Screening Mammogram, [facility]. Tissue Density: The breasts are almost entirely fatty. Findings: Analyzed By CAD. There is no suspicious group of microcalcifications or new suspicious mass. Overall Assessment: Negative, BI-RAD 1 Management: Screening Mammogram of both breasts in [address] [facility] will attempt to contact patient to return for supplemental views and ultrasound if indicated. Patient should continue monthly self-breast exams. A clinical breast exam by your physician is recommended on an annual basis. This exam should not preclude additional follow-up of suspicious palpable abnormalities. Note on Clair scores and lifetime risk: 1. A Clair score greater than 3% is considered moderate risk. If this is the case, consider specialist referral to assess eligibility for a risk reducing agent. 2. If overall lifetime risk for the development of breast cancer is 20% or higher, the patient may qualify for future screening with alternating mammogram and breast MRI. Electronically signed and approved by: Sheldon Santamaria DO
== END | disposition home or self-care (01) ==
LOC: RADMAMWWP 15:32
PROVIDERS: ATTEND Family Medicine
DX: Z12.31 Encounter for screening mammogram for malignant neoplasm of breast (principal); Z78.0 Asymptomatic menopausal state
CPT/HCPCS: 77067

== ENCOUNTER 2024-01-06 12:06 | Emergency (ER) | payer MEDICARE ==
[2024-01-06 12:27] VITALS: RESP 18; TEMP 98
[2024-01-06] MEDS: DIPH,PERTUS(ACELL)TETVAC-LF 0.5 ML VIAL IM ONE (13:24)
[2024-01-06] MEDS: BACITRACIN ZINC 500 UNIT/GM OINT 28.4 GM TUBE TOPICAL ONE (13:24)
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
[2024-01-06 14:06] VITALS: BP 108/72; PULSE 80
== END 2024-01-06 14:38 | disposition home or self-care (01) ==
LOC: EC 12:06
DX: T23.061A Burn of unspecified degree of back of right hand, initial encounter
CPT/HCPCS: 16020; 90471; 90715; 99283